=== PATIENT | female | born 1945 | race Caucasian/White ===

== ENCOUNTER 2018-10-11 16:19 | Emergency (ER) | payer MEDICARE ==
--- OUTSIDE RECORDS SUMMARY | 2018-10-11 16:46 | XMS REPORT ---
:1945 External Reference #:[id number] Author Organization [facility] Address [address] [place] [address] Phone [phone] Care Team Providers Name Role Phone Toby Isabel Care Team Information Window Clerk Unavailable Toby Isabel Primary Care Physician Unavailable Payers Type Date Identification Numbers Payment Provider Subscriber Commercial Effective: Policy Number: Medicare Blue Ppo Danielle Saldivar 2016 [id number] Group Number: [id number] [address] [phone] PayID: [id number] [place] [address] Problems Date Description Provider Status Onset: 02/25/2006 Allergic rhinitis Toby Isabel M.D. Active Onset: 02/25/2006 Hyperlipidemia Toby Isabel M.D. Active Onset: 02/25/2006 Hearing loss Toby Isabel M.D. Active Onset: 02/25/2006 Tinnitus Toby Isabel M.D. Active Onset: 06/05/2011 Diverticulitis of colon Toby Isabel M.D. Active Onset: 06/05/2011 Malaise and fatigue Toby Isabel M.D. Active Onset: 06/14/2011 Pulmonary embolism Toby Isabel M.D. 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 Active Onset: 06/24/2011 Anxiety state Toby Isabel M.D. Active Onset: 10/21/2011 Irritable bowel syndrome Toby Isabel M.D. Active Onset: 06/15/2012 Arthropathy Toby Isabel M.D. Active Onset: 04/05/2013 Neck pain Toby Isabel M.D. Active Onset: 04/05/2013 Backache Toby Isabel M.D. Active Onset: 10/14/2014 Gastroesophageal reflux disease Toby Isabel M.D. Active Onset: 10/14/2014 Liver function tests abnormal Toby Isabel M.D. Active Onset: 11/01/2014 Depressive disorder Toby Isabel M.D. Active Onset: 02/27/2015 Extrinsic asthma without status Toby Isabel M.D. Active asthmaticus Onset: 11/13/2015 Acute sinusitis Toby Isabel M.D. Active Onset: 11/13/2015 Acute gastritis Toby Isabel M.D. Active Onset: 11/13/2015 Dizziness and giddiness Toby Isabel M.D. Active Onset: 09/14/2016 Knee pain Toby Isabel M.D. Active Onset: 06/24/2011 Epigastric pain Toby Isabel M.D. Resolved Resolved: 07/02/2015 Onset: 11/04/2012 Acute upper respiratory infection Toby Isabel M.D. Resolved Resolved: 07/02/2015 Onset: 11/04/2012 Acute serous otitis media Toby Isabel M.D. Resolved Resolved: 07/02/2015 Onset: 12/21/2012 Sprain of interphalangeal joint of Toby Isabel M.D. Resolved finger Resolved: 07/02/2015 Onset: 12/21/2012 Sprain, metatarsophalangeal joint Toby Isabel M.D. Resolved Resolved: 07/02/2015 Onset: 02/27/2015 Allergic rhinitis due to pollen Toby Isabel M.D. Resolved Resolved: 07/02/2015 Onset: 04/04/2015 Adult health examination Toby Isabel M.D. Resolved Resolved: 07/02/2015 Onset: 02/25/2006 Allergic condition Toby Isabel M.D. Resolved Resolved: 07/02/2015 Family History Date Family Member(s) Problem(s) Comments Father due to Stroke () Father due to Alzheimer's Disease () Mother due to Brain Tumor () First Brother No Current Problems Social History Type Date Description Comments Marital Status Patient is Cigarette Use Nonsmoker ETOH Use Denies alcohol use Smoking Patient has never smoked Allergies, Adverse Reactions, Alerts Date Description Reaction Status Severity Comments 01/16/2010 Flagyl lightheaded, almost passed out. active 04/05/2013 Percocet pounding heart beat- diarrhea active Medications Medication Date Status Form Strength Qnty SIG Indications Ordering Provider Amoxicillin/Clav 10/04 Active Tablets 875-125mg 28tabs take one J01.90 Jayne Donnie ulanate /2017 by mouth Zhou, Potassium twice [employer] daily until gone Meclizine HCL 10/04 Active Tablets 12.5mg 30tabs take 1-2 H81.319 Jayne C. /2017 by mouth Zhou, 3 times [employer] daily as needed for vertigo Desloratadine 06/17 Active Tablets 5mg 30tabs 1 by Toby T. mouth Midura, every day M.D. as needed for allergies Saline Nasal 12/09 Active Solution 0.65% 2 sprays Unknown each nostril qd Montelukast 07/23 Active Tablets 10mg 30tabs take one J30.2 Toby T. Sodium /2015 tablet by Midura, mouth M.D. once daily at bedtime Fluticasone 02/22 Active Suspension 50mcg/Act 16units 1-2 J30.2 Toby T. Propionate sprays Midura, each M.D. nostril daily as needed for allergies Alprazolam 01/06 Active Tablets 0.25mg 5tabs /2-1 F41.9 Toby T. tabs by Midura, mouth M.D. twice a day as needed anxiety Warfarin Sodium 01/20 Active Tablets 4mg 30tabs take 1 Toby T. tablet by Midura, mouth M.D. every day or as directed. Psyllium Active Capsule 2 po qd Warfarin Sodium Active Tablets 5mg 30tabs 1 by Toby T. mouth Midura, every day M.D. or as directed Prednisone 04/15 Hx Tablets 10mg 14tabs 1 twice a Toby T. day x 4 Midura, - days then M.D. 04/22 1 day x 4 days then 1/2 daily x 4 days Cefdinir 03/17 Hx Capsules 300mg 20caps 1 by Toby Carrasco mouth Midura, - twice a M.D. Amoxicillin/Clav 03/08 Hx Tablets 875-125mg 20tabs 1 twice a J01.80 Toby castle day w/ Midura, Potassium - food. M.D. 03/17 Amoxicillin/Clav 07/23 Hx Tablets 875-125mg 20tabs 1 by J06.9 Meseret uljoao mouth Brown, [employer] Potassium - twice a 09/14 day x days Zyrtec Allergy 04/29 Hx Tablets 10mg 1 qd prn J30.2 Toby Carrasco Allergy Midura, - Symptoms M.D. 10/04 Doxycycline 01/22 Hx Capsules 100mg 2caps Take 2 S00.06xA Meseret Hyclate tablets Gabriel [employer] - one time 01/23 Amoxicillin/Clav 11/27 Hx Tablets 875-125mg 30tabs 1 twice a J01.80 Toby castle day w/ Midura, Potassium - food. M.D. 01/22 Azithromycin 11/13 Hx Tablets 250mg 6tabs 2 by J01.80 Toby Carrasco mouth Chalo, - today and M.D. 11/27 1 mouth x 4 days Cephalexin 10/30 Hx Tablets 250mg 21tabs 1 by S91.331A mouth Antonio, - three Afnp-C 11/06 times day x 7 days Omeprazole 10/30 Hx Capsules 20mg 30caps 1-[address] martin Alvarez, - every day Afnp-C 11/27 Fexofenadine HCL 10/30 Hx Tablets 180mg 14tabs 1 by H81.10 martin Alvarez, - every day Afnp-C 11/06 Naprosyn 07/02 Hx Tablets 500mg 60tabs 1 tab by 724.2 mouth Thanh, - twice a M.D. 10/30 day needed. take with food Cyclobenzaprine 07/02 Hx Tablets 5mg 60tabs 1 tab by 724.2 Debbie HCL mouth [place], - three M.D. 11/27 times a day as needed Physical Therapy 07/01 Hx treatment Toby T. and , - evaluatio M.D. 10/30 n back pain Singulair 02/27 Hx Tablets 10mg 30tabs 1 PO AT 493.00 Toby T. hs For [facility], - Allergies M.D. 07/02 And Asthma Proair HFA 02/27 Hx Aerosol 108(90Bas 8.5units 1-2 puffs 493.00 Toby T. e) every 4 , - mcg/Act hours as M.D. 07/02 needed Fluticasone 02/13 Hx Suspension 50mcg/Act 1Bottle 1-2 Toby T. Propionate sprays , - each M.D. 07/02 nostril daily prn for allergies Pramosone E 02/03 Hx Cream 1-2.5% 30gm apply to 782.1 affected [facility], - areas on Afnp-C 02/10 knee twice a day as needed to rash Doxycycline 01/24 Hx Tablets 100mg 2tabs take 2 916.4 Darell Hyclate pills [facility], - M.D. 02/27 Warfarin Sodium 11/25 Hx Tablets 3mg 30tabs 1 PO qd Toby T. , - M.D. 06/23 Amitriptyline 11/01 Hx Tablets 10mg 60tabs take 1/2 300.00 Toby T. HCL [place] [facility] [facility] - M.D. 04/04 Enoxaparin 10/21 Hx Solution 80mg/0.8M 6units Inject 415.19 Toby T. Sodium L 0.8 ml , - subcutane M.D. 11/01 ously every 12 hours (has incase of emergency ) Ondansetron 10/18 Hx Tablets 4mg 4tabs dissolve 787.02 Meseret Dispers one Brown, [employer] - tablet 10/23 under the /2014 tongue every eight hours for nausea/vo miting Escitalopram 10/14 Hx Tablets 5mg 40tabs 1-2 by 300.00 Toby T. Oxalate mouth Midura, - every day M.D. 10/18 for anxiety Alprazolam 09/13 Hx Tablets 0.25mg 40tabs 1/2-1 300.00 Toby T. tabs by Chalo, - mouth M.D. 07/02 twice a day as needed anxiety Cipro 05/26 Hx Tablets 500mg 20tabs 1 po bid Swathi L. x 10 Galina, - days. M.D. 05/28 diverticu litis Augmentin 10/08 Hx Tablets 500-125mg 20tabs 1 po bid 465.9 Toby T. Midura, - M.D. 05/28 Dicyclomine HCL 09/06 Hx Capsules 10mg 60caps take 1 Toby T. capsule Midura, - by mouth M.D. 01/24 times a day if needed for cramping Physical Therapy 04/05 Hx treatment 723.1 Toby T. and Midura, - evaluatio M.D. 10/08 n neck and upper back pain Fluticasone 12/21 Hx Suspension 50mcg/Act 1Bottle 1-2 Toby T. Propionate sprays Mid, - each M.D. 04/05 nostril daily prn for allergies Enoxaparin 07/17 Hx Solution 80mg/0.8M 6units Inject Harley F. Sodium L 0.8 ml Shallish, - subcutane M.D. 06/15 ously every 12 hours (has incase of emergency ) Cholestyramine 07/07 Hx Packet 4gm 60units use one Toby T. (1) Chalo, - packet M.D. 10/21 twice daily in a glass of water Dicyclomine HCL 06/29 Hx Capsules 10mg 60caps take 1 Toby T. capsule Midura, - by mouth M.D. 11/04 times a day if needed for cramping Prevacid 24HR 06/24 Hx Capsules 15mg Samples 1 po qd Toby T DR Isabel, - M.DJanee 07/17 Sulfamethoxazole 06/22 Hx Tablets 800-160mg 20tabs 1 po bid Toby T. /Trimethoprim Chalo - M.DJanee 07/03 Alprazolam 06/14 Hx Tablets 0.25mg 30tabs /2-1 Toby T. tabs po Radhaura, - bid prn M.D. 11/04 Warfarin Sodium 06/11 Hx Tablets 2.5mg 60tabs Take 1 To Toby T 2 Tablets Chalo, - Daily Or M.D. 06/15 Directed Clindamycin HCL 06/05 Hx Capsules 300mg 10caps 1 po Bid 562.11 Toby T. Chalo, - M.DJanee 06/11 Levaquin 06/01 Hx Tablets 500mg 10tabs 1 po qd Toby T. Chalo - M.DJanee 06/11 Cipro 05/29 Hx Tablets 500mg 10tabs 1 po bid 789.09 Sharona Molina for 5 LaFace, - days M.D. 06/01 Fluticasone 04/08 Hx Suspension 50mcg/Act 1Bottle 1-2 Yaw A. Propionate sprays Markus, - each M.D. 10/21 nostril daily prn for allergies Augmentin 03/31 Hx Tablets 875-125mg 28tabs 1 po bid 461.0 with food Emerita, - x 14d [employer] PROF[employer] 05/24 Physical Therapy 03/11 Hx treatment Toby T and Chalo, - evaluatio M.D. 03/31 n low back pain Physical Therapy 01/13 Hx 1units treatment and Carie Velazquez, - evaluatio M.D. 03/11 n Right knee osteoarth ritis Note 12/26 Hx 1units hinged 719.46 brakamaljit Velazquez, - right M.D. 03/31 knee - pain/inst ability Valacyclovir HCL 08/03 Hx Tablets 1gm 20tabs 1 po bid Toby T x 10 day. Midtiffany, - M.D. 08/06 Zovirax 08/03 Hx Ointment 5% 1tube apply 5 Toby T. times Midura, - daily M.D. 08/06 Valacyclovir HCL 08/03 Hx Tablets 500mg 60tabs 1 po bid Toby T. x 5 for Midura, - recurrenc M.D. 11/04 e. Keflex 07/31 Hx Capsules 500mg 30caps 1 po tid 599.0 Swathi L. with Galina, - yogurt/ke M.D. 12/26 fir. Flagyl 01/15 Hx Tablets 500mg 21tabs 1 po tid Toby T. Midura, - M.D. 01/16 Physical Therapy 12/16 Hx treatment Toby T. and Midura, - evaluatio M.D. 01/05 n And Upper back pain Augmentin 08/12 Hx Tablets 875mg 20tabs 1 po bid Toby T. with food Midura, - M.D. 01/27 Klonopin 11/15 Hx Tablets 0.5mg 60tabs 1-2 hs Toby T. prn For Midura, - Back Pain M.D. 07/31 And Augmentin 08/21 Hx Tablets 875mg 14tabs 1 po bid 461.9 Yaw A. /2006 Markus, - M.D. 08/28 Xanax 04/07 Hx Tablets 0.25mg 20tabs 1 Tabs PO Toby T. bid prn Midura, - Anxiety M.D. 09/12 Physical Therapy 05/19 Hx treatment Toby T. and Midura, - evaluatio M.D. 02/01 n hammertoe s both feet. Physical Therapy 04/28 Hx treatment Toby T. and Midura, - evaluatio M.D. 08/12 n and upper back pain And RT Knee Pain Hearing Test 02/28 Hx PT needs Toby T. to have A Midura, - hearing M.D. 02/01 test due to hearing loss Loratadine 10/14 Hx Tablets 10mg 30tabs 1 po qd Toby T. prn Chalo, - M.D. 04/07 Physical Therapy 12/25 Hx treatment Toby T. and Chalo, - evaluatio M.D. 02/14 n neck, upper back and RT shoulder pain Amoxicillin 12/15 Hx Tablets 500mg 30tabs 1 tid X Rupal /2004 10 Days Antonio, - Afnp-C 12/25 Amoxil 06/02 Hx 500mg 30units 1 PO tid Manasa Hilsdorf, - Afnp-C 06/12 Nasonex 04/09 Hx Suspension 50mcg/Act 1units 2 sprays Toby T. each Chalo, - nostril M.D. 07/31 qd Beconase Nasal 01/31 Hx 1units 2 [place] Toby T. Inhaler bid prn Chalo, - M.D. 04/09 Physical Therapy 01/31 Hx Treatment Toby T. And Chalo, - Evaluatio M.D. 07/29 n Neck /2003 And RT Arm Pain And Numbness Beconase 02/23 Hx 42mcg 1units 2 Sprays Each S. Beau, - Nostril M.D. 01/31 Once Daily Physical Therapy 01/16 Hx Treatment Toni M. And Aletha, - Evaluatio M.D. 01/31 n Of Knee, Neck Shoulder And Lumbar Spine Naproxen 09/29 Hx 375mg Tab 60units 1 po tid Toby T. prn Chalo, - M.D. 02/14 Physical Therapy 09/01 Hx Treatment Toni M. And Blumkin, - Evaluatio M.D. 11/11 n Back Pain Nasonex 06/08 Hx 50mcg 1units 2 Sprays Toni M. Each Blumkin, - Nostril M.D. 02/23 qd Naproxen 06/08 Hx 375mg Tab 50units 1 PO tid Toni M. For One Blumkin, - Week Then M.D. 07/08 tid prn /2000 Amoxicillin 10/12 Hx Tablets 500mg 30tabs 1 Tablet Rupal 3 Times Antonio, - Daily Afnp-C 10/22 Bromfenex SA 07/11 Hx 60units one bid Toby T. prn MidMissael allen M.DJanee 09/29 Ceftin 04/06 Hx 250mg 20units PO bid Toni Molina X10D Missael Pompa.Jose Armando 10/12 Medrol Dosepack 03/28 Hx 4mg 1units as Toni Janee Directed Missael Pompa.DJanee 10/12 Zithromax 03/22 Hx 250mg 6units 2 Tabs Toni Molina Day 1 Missael Pompa.Jose Armando 03/27 1 Tab qd Days 2 Thru 5 Clarinex 03/22 Hx 10mg 30units 1 qd prn Toni Molina Missael Pompa.Jose Armando 10/12 Vancenase 06/05 Hx pkthaler 1units One Toni Janee sprays Aletha, - each M.D. 06/08 nostril /2000 bid Naproxen 03/31 Hx 375mg Tab 50units 1 PO tid Toni . prn Missael Pompa M.D. 10/12 Naproxen 12/23 Hx 375mg Tab 50units 1 tid For One Week Blumkin, - Then tid M.D. 01/12 prn /1998 Vancenase 06/17 Hx Pocket 1units 2 Sprays Toni Janee Each Aletha, - Nostril M.D. 01/21 Anaprox DS 01/06 Hx Tabs 550mg 30tabs 1 PO bid Harley F. prn Pain Shallish, - With Food M.D. 02/05 Bromfenex SA 12/05 Hx 60units as Dir Manasa Jose, - Afnp-C 03/22 Biaxin 09/05 Hx 500mg 20units 1 PO bid Toni Molina Missael Pompa.DJanee 01/21 Mucinex Maximum Hx Tablets ER 1200mg as Unknown Strength /0000 12HR Directed - 05/24 Sudafed 12 Hour 00 Hx Tablets ER 120mg 1 po bid Unknown /0000 12HR prn - 05/24 Ibuprofen 00/ Hx Capsules 200mg prn Unknown /0000 - 05/29 Tylenol Hx Tablets 325mg 120tabs prn Unknown /0000 - 10/21 Lovenox Hx Solution 80mg/0.8M 16ml 80 mg sq Unknown / L bid - 06/24 Flonase Hx Suspension 50mcg/Act 2 each Unknown /0000 nostril - qd 10/21 Swetha D 24H 00 Hx 1 po qd Unknown / - 10/21 Flonase 00 Hx Suspension 50mcg/Act 3units 2 each Rupal /0000 nostril Antonio, - qd Afnp-C 11/04 Aspir-Low Hx 81mg 1 po qd Unknown /0000 - 09/23 Cefdinir Hx Capsules 300mg 6caps 1 po bid Toby T. /0000 Radhaura, - M.D. 12/21 Amoxicillin Hx Capsules 500mg 1 po tid Unknown /0000 - 05/28 Amoxicillin/Clav 00 Hx Tablets 875-125mg 20tabs 1 po bid Unknown ulanate /0000 Potassium - 09/23 Zofran Odt Hx Tablets 4mg 30tabs 1 by Unknown /0000 Dispers mouth - every 4-6 / hours needed nausea Omeprazole Hx Capsules 20.6(20Ba One tab Unknown Magnesium /0000 se) mg by mouth - once a Prilosec OTC Hx Tablets DR 20mg 1 by Unknown /0000 mouth - every day 11/13 Immunizations CPT Code Status Date Vaccine Lot # [id number] Given 07/27/2018 High-Dose, Influenza Virus Vacccine-fluzone 65 and [id number] older Given 07/22/2017 High-Dose, Influenza Virus Vacccine-fluzone 65 and [id number] older Given 08/06/2016 High-Dose, Influenza Virus Vacccine-fluzone 65 and [id number] older 48385 Given 08/22/2015 High-Dose, Influenza Virus Vacccine-fluzone 65 and [id number] older 85817 Given 08/31/2014 Tetanus And Diptheria Adult Preservative Free >7Yrs 58240 Given 08/17/2014 High-Dose, Influenza Virus Vacccine-fluzone 65 and older 52398 Given 08/17/2014 High-Dose, Influenza Virus Vacccine-fluzone 65 and [id number] older 68514 Given 08/17/2013 High-Dose, Influenza Virus Vacccine-fluzone 65 and [id number] older 56420 Given 12/21/2012 Zostivax [id number] 08039 Given 09/21/2012 Tdap Tetanus, W Pertussis [id number] 99239 Given 09/21/2012 High-Dose, Influenza Virus Vacccine-fluzone 65 and [id number] older Q2038 Given 07/17/2011 Split Influenza Medicare: Fluzone [id number] 01023 Given 04/21/2011 Pneumococcal Immunization 92678 Given 12/16/2010 DO Not Use Split Influenza Virus Vaccine [id number] 17514 Given 11/18/2009 H1N1 Virus Vaccine [id number] 13276 Given 11/18/2009 H1N1 Immunization Intramuscular/Intranasal W Counseling 88253 Given 08/12/2008 DO Not Use Split Influenza Virus Vaccine [id number] 77518 Given 10/06/2007 DO Not Use Split Influenza Virus Vaccine 09124 Given 09/29/2005 DO Not Use Split Influenza Virus Vaccine 53892 Given 09/07/1999 DO Not Use Split Influenza Virus Vaccine 37025 Given 08/14/1998 Influenza Immunization 01122 Given 08/13/1997 Influenza Immunization Vital Signs Date Vital Result Comment 10/04/2018 BP Systolic 120 mmHg BP Diastolic 68 mmHg Heart Rate 72 /min Body Temperature 98.3 F Respiratory Rate 18 /min Height 69.25 inches 5'9.25" measured 04/29/16 Weight 204.00 lb BMI (Body Mass Index) 29.9 kg/m2 06/17/2017 BP Systolic 124 mmHg BP Diastolic 66 mmHg Heart Rate 72 /min Body Temperature 97.9 F Respiratory Rate 16 /min Height 69.25 inches 5'9.25" measured 04/29/16 Weight 201.38 lb BMI (Body Mass Index) 29.5 kg/m2 03/08/2017 BP Systolic 142 mmHg BP Diastolic 72 mmHg Heart Rate 84 /min Body Temperature 97.5 F Respiratory Rate 16 /min Height 69.25 inches 5'9.25" measured 04/29/16 Weight 200.38 lb BMI (Body Mass Index) 29.4 kg/m2 09/14/2016 BP Systolic 122 mmHg BP Diastolic 68 mmHg Heart Rate 78 /min Body Temperature 97.5 F Respiratory Rate 16 /min Height 69.25 inches 5'9.25" measured 04/29/16 Weight 202.00 lb BMI (Body Mass Index) 29.6 kg/m2 07/23/2016 BP Systolic 120 mmHg BP Diastolic 72 mmHg Heart Rate 72 /min Body Temperature 98.1 F Respiratory Rate 18 /min Height 69.25 inches 5'9.25" measured 04/29/16 Weight 200.00 lb BMI (Body Mass Index) 29.3 kg/m2 05/11/2016 BP Systolic 138 mmHg BP Diastolic 90 mmHg Heart Rate 72 /min Body Temperature 98.1 F Respiratory Rate 18 /min Height 69.25 inches 5'9.25" measured 04/29/16 Weight 197.00 lb BMI (Body Mass Index) 28.9 kg/m2 04/29/2016 BP Systolic 122 mmHg BP Diastolic 68 mmHg Heart Rate 72 /min Body Temperature 98.1 F Respiratory Rate 16 /min Height 69.25 inches 5'9.25" measured 04/29/16 Weight 195.50 lb BMI (Body Mass Index) 28.7 kg/m2 02/12/2016 BP Systolic 110 mmHg BP Diastolic 74 mmHg Heart Rate 68 /min Body Temperature 97.7 F Respiratory Rate 18 /min Height 70 inches 5'10" Weight 198.00 lb BMI (Body Mass Index) 28.4 kg/m2 01/23/2016 BP Systolic 110 mmHg BP Diastolic 80 mmHg Heart Rate 68 /min Body Temperature 98.0 F Respiratory Rate 18 /min Weight 198.00 lb 11/27/2015 BP Systolic 116 mmHg BP Diastolic 68 mmHg Heart Rate 72 /min Body Temperature 97.9 F Respiratory Rate 16 /min Height 70 inches 5'10" measured 04/04/15 Weight 196.25 lb BMI (Body Mass Index) 28.2 kg/m2 11/13/2015 BP Systolic 100 mmHg BP Diastolic 60 mmHg Heart Rate 84 /min Body Temperature 98.2 F Respiratory Rate 16 /min Height 70 inches 5'10" measured 04/04/15 Weight 194.00 lb BMI (Body Mass Index) 27.8 kg/m2 10/30/2015 BP Systolic 120 mmHg BP Diastolic 80 mmHg Heart Rate 80 /min Body Temperature 98.2 F Respiratory Rate 18 /min Height 70 inches 5'10" measured 04/04/15 Weight 194.00 lb BMI (Body Mass Index) 27.8 kg/m2 07/02/2015 BP Systolic 122 mmHg BP Diastolic 70 mmHg Heart Rate 78 /min Body Temperature 97.9 F Respiratory Rate 16 /min Height 70 inches 5'10" measured 04/04/15 Weight 191.00 lb BMI (Body Mass Index) 27.4 kg/m2 04/28/2015 BP Systolic 134 mmHg BP Diastolic 68 mmHg Heart Rate 80 /min Body Temperature 97.7 F Respiratory Rate 16 /min Height 70 inches 5'10" measured 04/04/15 Weight 185.00 lb BMI (Body Mass Index) 26.5 kg/m2 04/04/2015 BP Systolic 130 mmHg BP Diastolic 60 mmHg Heart Rate 84 /min Body Temperature 100.2 F Respiratory Rate 16 /min Height 70 inches 5'10" measured 04/04/15 Weight 186.25 lb BMI (Body Mass Index) 26.7 kg/m2 Right Visual Acuity Distance 20/25 corrected Left Visual Acuity Distance 20/30 corrected 02/27/2015 BP Systolic 146 mmHg BP Diastolic 74 mmHg Heart Rate 84 /min Body Temperature 98.2 F Respiratory Rate 16 /min O2 % BldC Oximetry 97 % Weight 185.25 lb 02/03/2015 BP Systolic 140 mmHg BP Diastolic 90 mmHg Heart Rate 80 /min Body Temperature 98.5 F Respiratory Rate 18 /min Height 70 inches 5'10" Weight 185.00 lb BMI (Body Mass Index) 26.5 kg/m2 01/24/2015 BP Systolic 130 mmHg BP Diastolic 80 mmHg Heart Rate 84 /min Body Temperature 98.1 F Respiratory Rate 16 /min Height 70 inches 5'10" Weight 182.00 lb BMI (Body Mass Index) 26.1 kg/m2 01/06/2015 BP Systolic 108 mmHg BP Diastolic 64 mmHg Heart Rate 80 /min Body Temperature 98.1 F Respiratory Rate 16 /min Height 70 inches 5'10" Weight 179.00 lb BMI (Body Mass Index) 25.7 kg/m2 12/16/2014 BP Systolic 108 mmHg BP Diastolic 60 mmHg Heart Rate 80 /min Body Temperature 98.1 F Respiratory Rate 16 /min Height 70 inches 5'10" Weight 174.00 lb BMI (Body Mass Index) 25.0 kg/m2 11/25/2014 BP Systolic 120 mmHg BP Diastolic 60 mmHg Heart Rate 88 /min Body Temperature 99.0 F Respiratory Rate 16 /min Height 70 inches 5'10" Weight 175.00 lb BMI (Body Mass Index) 25.1 kg/m2 11/11/2014 BP Systolic 118 mmHg BP Diastolic 70 mmHg Heart Rate 88 /min Body Temperature 98.0 F Respiratory Rate 16 /min Height 70 inches 5'10" Weight 178.25 lb BMI (Body Mass Index) 25.6 kg/m2 11/01/2014 BP Systolic 124 mmHg BP Diastolic 72 mmHg Heart Rate 78 /min Body Temperature 98.5 F Respiratory Rate 16 /min Height 70 inches 5'10" Weight 179.00 lb BMI (Body Mass Index) 25.7 kg/m2 10/25/2014 BP Systolic 132 mmHg BP Diastolic 70 mmHg Heart Rate 104 /min Body Temperature 98.2 F Respiratory Rate 16 /min Height 70 inches 5'10" Weight 180.00 lb BMI (Body Mass Index) 25.8 kg/m2 10/18/2014 BP Systolic 106 mmHg BP Diastolic 74 mmHg Heart Rate 60 /min Body Temperature 98.0 F Respiratory Rate 16 /min Height 70 inches 5'10" Weight 181.50 lb BMI (Body Mass Index) 26.0 kg/m2 10/14/2014 BP Systolic 124 mmHg BP Diastolic 82 mmHg Heart Rate 80 /min Body Temperature 98.3 F Respiratory Rate 18 /min Height 70 inches 5'10" Weight 180.50 lb BMI (Body Mass Index) 25.9 kg/m2 09/27/2014 BP Systolic 130 mmHg BP Diastolic 88 mmHg Heart Rate 72 /min Body Temperature 97.7 F Respiratory Rate 22 /min Height 70 inches 5'10" 09/23/2014 BP Systolic 128 mmHg BP Diastolic 82 mmHg Heart Rate 76 /min Body Temperature 98.5 F Respiratory Rate 16 /min Height 70 inches 5'10" Weight 180.00 lb BMI (Body Mass Index) 25.8 kg/m2 05/28/2014 BP Systolic 120 mmHg BP Diastolic 66 mmHg Heart Rate 76 /min Body Temperature 98.6 F Respiratory Rate 16 /min Height 70 inches 5'10" Weight 192.00 lb BMI (Body Mass Index) 27.5 kg/m2 10/08/2013 BP Systolic 128 mmHg BP Diastolic 76 mmHg Heart Rate 78 /min Body Temperature 98.2 F Respiratory Rate 16 /min Height 70 inches 5'10" Weight 188.38 lb BMI (Body Mass Index) 27.0 kg/m2 04/05/2013 BP Systolic 138 mmHg BP Diastolic 82 mmHg BP Systolic Recheck 108 mmHg BP Diastolic Recheck 74 mmHg Heart Rate 78 /min Body Temperature 97.2 F Respiratory Rate 15 /min Height 70 inches 5'10" Weight 192.00 lb BMI (Body Mass Index) 27.5 kg/m2 12/21/2012 BP Systolic 110 mmHg BP Diastolic 80 mmHg Heart Rate 78 /min Body Temperature 97.6 F Respiratory Rate 16 /min Height 70 inches 5'10" Weight 195.00 lb BMI (Body Mass Index) 28.0 kg/m2 11/04/2012 BP Systolic 108 mmHg BP Diastolic 70 mmHg Heart Rate 78 /min Body Temperature 98.0 F Height 70 inches 5'10" Weight 190.00 lb BMI (Body Mass Index) 27.3 kg/m2 09/21/2012 BP Systolic 110 mmHg BP Diastolic 72 mmHg Heart Rate 76 /min Body Temperature 97.7 F Height 70 inches 5'10" Weight 191.00 lb BMI (Body Mass Index) 27.4 kg/m2 06/15/2012 BP Systolic 120 mmHg BP Diastolic 80 mmHg Heart Rate 72 /min Height 70 inches 5'10" Weight 195.00 lb BMI (Body Mass Index) 28.0 kg/m2 10/21/2011 BP Systolic 104 mmHg BP Diastolic 64 mmHg Heart Rate 80 /min Body Temperature 97.6 F Respiratory Rate 20 /min Height 70 inches 5'10" Weight 186.00 lb BMI (Body Mass Index) 26.7 kg/m2 07/17/2011 BP Systolic 118 mmHg BP Diastolic 70 mmHg Heart Rate 76 /min Body Temperature 98.1 F O2 % BldC Oximetry 98 % Height 70 inches 5'10" Weight 180.00 lb BMI (Body Mass Index) 25.8 kg/m2 07/03/2011 BP Systolic Recheck 120 mmHg BP Diastolic Recheck 76 mmHg Heart Rate 76 /min Body Temperature 97.1 F Respiratory Rate 12 /min 06/24/2011 BP Systolic 102 mmHg BP Diastolic 60 mmHg Heart Rate 72 /min Body Temperature 97.2 F Respiratory Rate 15 /min Height 70 inches 5'10" Weight 180.00 lb BMI (Body Mass Index) 25.8 kg/m2 06/14/2011 BP Systolic 112 mmHg BP Diastolic 72 mmHg Heart Rate 88 /min Respiratory Rate 15 /min Height 70 inches 5'10" Weight 179.00 lb BMI (Body Mass Index) 25.7 kg/m2 06/05/2011 BP Systolic 100 mmHg BP Diastolic 60 mmHg Heart Rate 92 /min Body Temperature 97.9 F Height 70 inches 5'10" 06/01/2011 BP Systolic 118 mmHg BP Diastolic 70 mmHg BP Diastolic Recheck 0 mmHg Heart Rate 100 /min Body Temperature 98.3 F Respiratory Rate 14 /min Height 70 inches 5'10" Weight 183.00 lb BMI (Body Mass Index) 26.3 kg/m2 05/29/2011 BP Systolic 100 mmHg BP Diastolic 56 mmHg Heart Rate 68 /min Body Temperature 98.2 F Respiratory Rate 22 /min Height 70 inches 5'10" 05/24/2011 BP Systolic 104 mmHg BP Diastolic 68 mmHg Heart Rate 90 /min Height 70 inches 5'10" Weight 188.00 lb BMI (Body Mass Index) 27.0 kg/m2 04/01/2011 BP Systolic 116 mmHg BP Diastolic 60 mmHg Heart Rate 78 /min Body Temperature 99.1 F Height 70 inches 5'10" Weight 196.00 lb BMI (Body Mass Index) 28.1 kg/m2 03/31/2011 BP Systolic 102 mmHg BP Diastolic 54 mmHg Heart Rate 90 /min Body Temperature 99.4 F Height 70 inches 5'10" Weight 196.00 lb BMI (Body Mass Index) 28.1 kg/m2 12/26/2010 BP Systolic 110 mmHg BP Diastolic 76 mmHg Heart Rate 76 /min Height 70 inches 5'10" Weight 195.00 lb BMI (Body Mass Index) 28.0 kg/m2 08/06/2010 BP Systolic 120 mmHg BP Diastolic 70 mmHg Heart Rate 84 /min Body Temperature 99.2 F Height 70 inches 5'10" Weight 188.00 lb BMI (Body Mass Index) 27.0 kg/m2 07/31/2010 BP Systolic 122 mmHg BP Diastolic 68 mmHg Heart Rate 84 /min Body Temperature 100.4 F Respiratory Rate 16 /min Height 70 inches 5'10" Weight 191.00 lb BMI (Body Mass Index) 27.4 kg/m2 01/05/2010 BP Systolic 130 mmHg BP Diastolic 80 mmHg Heart Rate 72 /min Body Temperature 97.5 F Respiratory Rate 12 /min Weight 190.00 lb 01/27/2009 BP Systolic 114 mmHg BP Diastolic 60 mmHg Heart Rate 76 /min Body Temperature 98.9 F Height 70 inches 5'10" Weight 204.00 lb BMI (Body Mass Index) 29.3 kg/m2 08/12/2008 BP Systolic 128 mmHg BP Diastolic 74 mmHg Heart Rate 68 /min Body Temperature 97.8 F Height 70 inches 5'10" Weight 204.00 lb BMI (Body Mass Index) 29.3 kg/m2 12/28/2007 BP Systolic 130 mmHg BP Diastolic 72 mmHg Heart Rate 84 /min Body Temperature 98.1 F Height 70 inches 5'10" Weight 211.00 lb BMI (Body Mass Index) 30.3 kg/m2 11/15/2007 BP Systolic 116 mmHg BP Diastolic 70 mmHg Heart Rate 84 /min Body Temperature 97.8 F Height 70 inches 5'10" Weight 206.00 lb BMI (Body Mass Index) 29.6 kg/m2 10/06/2007 BP Systolic 118 mmHg BP Diastolic 70 mmHg Heart Rate 90 /min Body Temperature 98.2 F Height 70 inches 5'10" Weight 206.00 lb BMI (Body Mass Index) 29.6 kg/m2 09/12/2007 BP Systolic 122 mmHg BP Diastolic 76 mmHg Heart Rate 74 /min Body Temperature 97.6 F Height 70 inches 5'10" Weight 204.00 lb BMI (Body Mass Index) 29.3 kg/m2 08/21/2007 BP Systolic 112 mmHg BP Diastolic 64 mmHg Heart Rate 76 /min Body Temperature 98.7 F O2 % BldC Oximetry 98 % Height 70 inches 5'10" 04/27/2007 BP Systolic 110 mmHg BP Diastolic 70 mmHg Heart Rate 68 /min Body Temperature 98.9 F Height 70 inches 5'10" Weight 209.00 lb BMI (Body Mass Index) 30.0 kg/m2 04/07/2007 BP Systolic 108 mmHg BP Diastolic 64 mmHg Heart Rate 72 /min Height 70 inches 5'10" Weight 208.00 lb BMI (Body Mass Index) 29.8 kg/m2 02/09/2007 BP Systolic 106 mmHg BP Diastolic 64 mmHg Heart Rate 88 /min Height 70 inches 5'10" Weight 213.00 lb BMI (Body Mass Index) 30.6 kg/m2 02/01/2007 BP Systolic 118 mmHg BP Diastolic 76 mmHg Heart Rate 72 /min Height 70 inches 5'10" 03/11/2006 BP Systolic 120 mmHg BP Diastolic 80 mmHg Heart Rate 88 /min Respiratory Rate 18 /min Height 70 inches 5'10" Weight 212.00 lb BMI (Body Mass Index) 30.4 kg/m2 02/25/2006 BP Systolic 122 mmHg BP Diastolic 76 mmHg Heart Rate 76 /min Height 70 inches 5'10" Weight 212.00 lb BMI (Body Mass Index) 30.4 kg/m2 02/14/2006 BP Systolic 108 mmHg BP Diastolic 62 mmHg Heart Rate 72 /min Height 70 inches 5'10" Weight 213.00 lb BMI (Body Mass Index) 30.6 kg/m2 09/29/2005 BP Systolic 118 mmHg BP Diastolic 70 mmHg Heart Rate 76 /min Height 70 inches 5'10" Weight 205.00 lb BMI (Body Mass Index) 29.4 kg/m2 09/20/2005 BP Systolic 126 mmHg BP Diastolic 82 mmHg Heart Rate 78 /min Height 70 inches 5'10" Weight 200.00 lb BMI (Body Mass Index) 28.7 kg/m2 12/25/2004 BP Systolic 124 mmHg BP Diastolic 74 mmHg Heart Rate 72 /min Height 70 inches 5'10" Weight 204.00 lb BMI (Body Mass Index) 29.3 kg/m2 12/15/2004 BP Systolic 122 mmHg BP Diastolic 72 mmHg Heart Rate 80 /min Body Temperature 99.5 F Height 70 inches 5'10" Weight 201.00 lb BMI (Body Mass Index) 28.8 kg/m2 07/29/2004 BP Systolic 102 mmHg LG Cuff BP Diastolic 72 mmHg LG Cuff Body Temperature 97.6 F Height 70 inches 5'10" Weight 195.00 lb BMI (Body Mass Index) 28.0 kg/m2 01/31/2003 BP Systolic 122 mmHg BP Diastolic 66 mmHg Heart Rate 76 /min Body Temperature 98.0 F Height 70 inches 5'10" Weight 207.50 lb BMI (Body Mass Index) 29.8 kg/m2 06/13/2002 BP Systolic 122 mmHg BP Diastolic 76 mmHg Body Temperature 96.7 F Height 70 inches 5'10" Weight 205.00 lb BMI (Body Mass Index) 29.4 kg/m2 10/23/2001 BP Systolic 1110 mmHg BP Diastolic 70 mmHg Heart Rate 74 /min Body Temperature 98.0 F Height 70 inches 5'10" Weight 210.00 lb BMI (Body Mass Index) 30.1 kg/m2 09/29/2001 BP Systolic 122 mmHg BP Diastolic 70 mmHg Heart Rate 76 /min Height 70 inches 5'10" Weight 207.00 lb BMI (Body Mass Index) 29.7 kg/m2 06/29/2001 BP Systolic 122 mmHg BP Diastolic 80 mmHg Heart Rate 80 /min Height 70 inches 5'10" Weight 203.00 lb BMI (Body Mass Index) 29.1 kg/m2 06/08/2001 BP Systolic 146 mmHg BP Diastolic 92 mmHg Height 70 inches 5'10" Weight 202.00 lb BMI (Body Mass Index) 29.0 kg/m2 10/12/2000 BP Systolic 136 mmHg BP Diastolic 80 mmHg Body Temperature 97.9 F Height 70 inches 5'10" Weight 206.50 lb BMI (Body Mass Index) 29.7 kg/m2 03/22/2000 BP Systolic 140 mmHg LA SM Cuff BP Diastolic 96 mmHg LA SM Cuff Body Temperature 97.3 F Weight 200.00 lb 08/27/1999 Weight 203.00 lb 03/31/1999 BP Systolic 120 mmHg LA LG Cuff BP Diastolic 86 mmHg LA LG Cuff Weight 202.00 lb 01/21/1999 BP Systolic 130 mmHg BP Diastolic 90 mmHg Weight 203.00 lb 12/23/1998 BP Systolic 120 mmHg BP Diastolic 82 mmHg Weight 202.00 lb 03/12/1998 BP Systolic 120 mmHg LA LG Cuff BP Diastolic 72 mmHg LA LG Cuff Body Temperature 97.2 F Weight 203.00 lb 01/24/1998 BP Systolic 108 mmHg L Arm LG Cuff BP Diastolic 64 mmHg L Arm LG Cuff 01/06/1998 BP Systolic 120 mmHg BP Diastolic 80 mmHg Weight 200.00 lb 09/05/1997 Body Temperature 98.2 F Weight 198.00 lb Results Test Date Test Result H/L Range Note Laboratory test 09/07/2018 Inr (Fma) 2.6 2-3 finding Laboratory test 08/24/2018 Inr (Fma) 3.2 High 2.0-3.0 finding Laboratory test 07/27/2018 Inr (Fma) 2.6 2-3 finding Laboratory test 07/06/2018 Inr (Fma) 2.4 2.0-3.0 finding Laboratory test 06/29/2018 Inr (Fma) 3.3 High 2.0-3.0 finding Laboratory test 06/08/2018 Inr (Fma) 3.4 High 0.9-1.1 finding Laboratory test 05/25/2018 Inr (Fma) 3.5 High 2.0-3.0 finding Laboratory test 04/20/2018 Inr (Fma) 2.3 2-3 finding Laboratory test 03/16/2018 Inr (Fma) 2.1 2-3 finding Laboratory test 03/01/2018 Inr (Fma) 3.2 High 0.9-1.1 finding Laboratory test 02/03/2018 Inr (Fma) 2.5 2.0-3.0 finding Laboratory test 01/06/2018 Inr (Fma) 2.2 2.0-3.0 finding Laboratory test 12/09/2017 Inr (Fma) 2.0 2.0-3.0 finding Laboratory test 12/02/2017 Inr (Fma) 2.7 2.0-3.0 finding Laboratory test 10/28/2017 Inr (Fma) 2.5 2-3 finding Laboratory test 09/30/2017 Inr (Fma) 3.0 2.0-3.0 finding Laboratory test 08/19/2017 Inr (Fma) 2.5 2-3 finding Laboratory test 07/22/2017 Inr (Fma) 2.5 High 0.9-1.1 finding Laboratory test 06/17/2017 Inr (Fma) 2.4 2.0-3.0 finding Laboratory test 06/03/2017 Inr (Fma) 2.5 2.0-3.0 finding Laboratory test 05/20/2017 Inr (Fma) 2.6 2.0-3.0 finding Laboratory test 04/22/2017 Inr (Fma) 2.5 2.0-3.0 finding Laboratory test 03/25/2017 Inr (Fma) 2.3 2.0-3.0 finding Laboratory test 03/11/2017 Inr (Fma) 2.3 2-3 finding Laboratory test 02/18/2017 Inr (Fma) 2.4 2.0-3.0 finding Laboratory test 01/28/2017 Inr (Fma) 2.4 2.0-3.0 finding Laboratory test 01/21/2017 Inr (Fma) 1.5 Low 2.0-3.0 finding Laboratory test 01/18/2017 Surgical Interface SEE RESULT 1 finding Order BELOW Laboratory test 01/13/2017 Inr (Fma) 3.0 2.0-3.0 finding Laboratory test 12/17/2016 Inr (Fma) 2.8 2.0-3.0 finding Laboratory test 12/10/2016 Inr (Fma) 2.7 2-3 finding Laboratory test 11/29/2016 Inr (Fma) 3.1 High 2.0-3.0 finding Laboratory test 11/15/2016 Inr (Fma) 3.1 High 2.0-3.0 finding Laboratory test 11/10/2016 Inr (Fma) 2.7 2-3 finding Laboratory test 11/05/2016 Inr (Fma) 2.6 2.0-3.0 finding Laboratory test 10/04/2016 Inr (Fma) 2.6 2-3 finding Laboratory test 09/14/2016 Inr (Fma) 2.6 2.0-3.0 finding Laboratory test 09/01/2016 Inr (Fma) 2.5 2.0-3.0 finding Laboratory test 08/25/2016 Inr (Fma) 3.3 High 2-3 finding Laboratory test 07/23/2016 Inr (Fma) 2.5 2.0-3.0 finding Laboratory test 07/02/2016 Inr (Fma) 2.3 2-3 finding Laboratory test 06/07/2016 Inr/Protime 2.74 High 0.89-1.11 finding CBC Auto Diff 06/07/2016 White Blood Count 6.4 10^3/uL 3.5-10.8 Red Blood Count 4.71 10^6/uL 4.0-5.4 Hemoglobin 13.5 g/dL 12.0-16.0 Hematocrit 41 % 35-47 Mean Corpuscular Volume 86 fL 80-97 Mean Corpuscular Hemoglobin 29 pg 27-31 Mean Corpuscular HGB Conc 33 g/dL 31-36 Red Cell Distribution Width 13 % 10.5-15 Platelet Count 207 10^3/uL 150-450 Mean Platelet Volume 8 um3 7.4-10.4 Abs Neutrophils 3.9 10^3/uL 1.5-7.7 Abs Lymphocytes 1.7 10^3/uL 1.0-4.8 Abs Monocytes 0.5 10^3/uL 0-0.8 Abs Eosinophils 0.1 10^3/uL 0-0.6 Abs Basophils 0 10^3/uL 0-0.2 Abs Nucleated RBC 0 10^3/uL Granulocyte % 61.7 % 38-83 Lymphocyte % 27.3 % 25-47 Monocyte % 8.4 % 1-9 Eosinophil % 2.2 % 0-6 Basophil % 0.4 % 0-2 Nucleated Red Blood Cells % 0 Laboratory test finding 06/07/2016 Lactic Acid 0.8 mmol/L 0.5-2.0 2 Comp Metabolic Panel 06/07/2016 Sodium 137 mmol/L 133-145 Potassium 4.2 mmol/L 3.5-5.0 Chloride 106 mmol/L 101-111 Co2 Carbon Dioxide 26 mmol/L 22-32 Anion Gap 5 mmol/L 2-11 Glucose 107 mg/dL High 70-100 Blood Urea Nitrogen 20 mg/dL 6-24 Creatinine 0.73 mg/dL 0.51-0.95 BUN/Creatinine Ratio 27.4 High 8-20 Calcium 9.0 mg/dL 8.6-10.3 Total Protein 6.7 g/dL 6.4-8.9 Albumin 3.7 g/dL 3.2-5.2 Globulin 3.0 g/dL 2-4 Albumin/Globulin Ratio 1.2 1-3 Total Bilirubin 0.80 mg/dL 0.2-1.0 Alkaline Phosphatase 78 U/L 34-104 Alt 16 U/L 7-52 Ast 21 U/L 13-39 Egfr Non- 78.6 >60 Egfr 101.1 >60 3 Laboratory test finding 06/07/2016 Magnesium 1.9 mg/dL 1.9-2.7 Troponin I 0.00 ng/mL <0.03 4 Laboratory test finding 06/04/2016 Inr (Fma) 2.7 2-3 Laboratory test finding 05/14/2016 Inr (Fma) 2.4 2-3 Laboratory test finding 04/29/2016 Inr (Fma) 3.0 3.0 Ua - Non Micro (Fma) 04/29/2016 Appearance clear Color yellow Glucose, Urine (Fma/CMC/CTX) neg Bilirubin neg Ketones neg SP Grav 1.025 Blood trace-lysed 5 PH 5.0 Protein neg Urobil 0.2 Nitrite neg Leukocytes (Fma/CMC/Centrex) small Complete Blood Count 04/29/2016 WBC 5.9 x10^3/UL 3.6-9.6 RBC 4.82 x10^6/UL 3.90-5.70 HGB 14.7 g/dL 12.1-17.2 HCT 43 % 36-50 MCV 89.0 fL 82.2-97.4 MCH 30.4 pg 27.6-33.3 MCHC 34.1 g/dL 33.0-35.5 RDW 13.4 % 11.6-13.7 PLT 255 x10^3/UL 150-400 MPV 7.1 fL Low 7.4-10.4 Gran # 4.0 x10^3/UL 1.5-7.2 Lymph# 1.6 x10^3/UL 0.7-4.9 Rains# 0.3 x10^3/UL 0.1-0.9 Gran % 66.7 % 42.2-75.2 Lymph % 28.2 % 20.5-51.1 Rains% 5.1 % 1.7-9.3 Comprehensive Metabolic Prof 04/29/2016 Sodium 139 mEq/L 134-149 Potassium 4.6 mEq/L 3.6-5.5 Chloride 101 mEq/L 94-112 Carbon Dioxide 28 mEq/L 21-32 Glucose 101 mg/dL 70-105 BUN 18 mg/dL 6-26 Creatinine 0.7 mg/dL 0.6-1.4 BUN/Creat Ratio 25.7 CALC 8.0-36.0 Calcium 9.8 mg/dL 8.6-10.2 Total Protein 6.9 g/dL 6.4-8.3 Albumin 4.3 g/dL 3.8-5.5 Globulin 2.6 g/dL 2.0-4.8 A/G Ratio 1.7 CALC 0.6-2.3 Alk. Phosphatase 91 U/L 30-110 Alt (SGPT) 21 U/L 7-35 Ast (Sgot) 25 U/L 5-34 Total Bilirubin 0.9 mg/dL 0.2-1.3 GFR Non- >60 ml/min/1.73m^ >=60 GFR >60 ml/min/1.73m^ >=60 Laboratory test finding 04/16/2016 Inr (Fma) 2.6 2-3 Laboratory test finding 04/09/2016 Inr (Fma) 3.2 High 2-3 Laboratory test finding 03/12/2016 Inr (Fma) 2.5 2.0-3.0 Laboratory test finding 02/20/2016 Inr (Fma) 2.8 2.0-3.0 Laboratory test finding 01/30/2016 Inr (Fma) 2.2 2.0-3.0 Laboratory test finding 01/16/2016 Inr (Fma) 2.2 2.0-3.0 Laboratory test finding 01/07/2016 Inr (Fma) 2.0 2.0-3.0 Laboratory test finding 12/24/2015 Inr (Fma) 2.7 2.0-3.0 Laboratory test finding 12/10/2015 Inr (Fma) 2.7 2.0-3.0 Laboratory test finding 12/01/2015 Inr (Fma) 2.5 2.0-3.0 Laboratory test finding 11/24/2015 Inr (Fma) 2.6 2-3 Laboratory test finding 11/17/2015 Inr (Fma) 2.8 2.0-3.0 Laboratory test finding 11/10/2015 Inr (Fma) 2.2 2-3 Laboratory test finding 11/04/2015 Inr (Fma) 2.1 2.0-3.0 Laboratory test finding 11/01/2015 Inr (Fma) 3.1 High 2.0-3.0 Laboratory test finding 2015 Inr (Fma) 2.6 2-3 Laboratory test finding 10/13/2015 Inr (Fma) 2.4 2.0-3.0 Laboratory test finding 10/03/2015 Inr (Fma) 2.2 2.0-3.0 Laboratory test finding 09/22/2015 Inr (Fma) 2.8 2.0-3.0 Laboratory test finding 09/12/2015 Inr (Fma) 2.4 2-3 Laboratory test finding 09/05/2015 Inr (Fma) 1.8 Low 2.0-3.0 Laboratory test finding 08/22/2015 Inr (Fma) 2.6 2-3 Laboratory test finding 08/15/2015 Inr (Fma) 2.8 2.0-3.0 Laboratory test finding 08/06/2015 Inr (Fma) 2.7 2-3 Laboratory test finding 07/29/2015 Inr (Fma) 2.8 2.0-3.0 Laboratory test finding 07/22/2015 Inr (Fma) 3.0 2.0-3.0 Laboratory test finding 07/15/2015 Inr (Fma) 2.3 2.0-3.0 Laboratory test finding 07/11/2015 Inr (Fma) 3.5 High 2.0-3.0 Laboratory test finding 07/05/2015 Inr (Fma) 2.7 2-3 Laboratory test finding 07/02/2015 Inr (Fma) 2.2 2.0-3.0 Laboratory test finding 06/26/2015 Inr (Fma) 3.1 High 2.0-3.0 Laboratory test finding 06/20/2015 Inr (Fma) 3.2 High 2.0-3.0 Laboratory test finding 06/13/2015 Inr (Fma) 2.6 2-3 Laboratory test finding 06/06/2015 Inr (Fma) 2.2 2.0-3.0 Laboratory test finding 05/30/2015 Inr (Fma) 2.5 2.0-3.0 Laboratory test finding 05/23/2015 Inr (Fma) 3.2 High 2.0-3.0 Laboratory test finding 05/16/2015 Inr (Fma) 2.4 2.0-3.0 Laboratory test finding 05/13/2015 Inr (Fma) 2.1 High 0.9-1.1 Laboratory test finding 05/09/2015 Inr (Fma) 3.1 High 2.0-3.0 Laboratory test finding 05/06/2015 Inr (Fma) 2.5 2.0-3.0 Laboratory test finding 05/02/2015 Inr (Fma) 3.0 2-3 Laboratory test finding 04/28/2015 Inr (Fma) 4.0 High 2.0-3.0 Urinalysis Profile 04/26/2015 Urine Color Straw Urine Appearance Clear Urine Specific Tillman 1.005 Low 1.010-1.030 Urine pH 6.0 5-9 Urine Urobilinogen Negative Negative Urine Ketones Negative Negative Urine Protein Negative Negative Urine Leukocytes Trace Negative Urine Blood 1+ Negative Urine Nitrite Negative Negative Urine Bilirubin Negative Negative Urine Glucose Negative Negative Urine White Blood Cell Absent Absent Urine Red Blood Cell 1+(3-5/hpf) Absent Urine Bacteria Absent Absent Urine Squamous Epithelial Cell Present Absent CBC Auto Diff 04/26/2015 White Blood Count 5.4 10^3/uL 4.8-10.8 Red Blood Count 4.89 10^6/uL 4.0-5.4 Hemoglobin 14.0 g/dL 12.0-16.0 Hematocrit 43 % 35-47 Mean Corpuscular Volume 87 fL 80-97 Mean Corpuscular Hemoglobin 29 pg 27-31 Mean Corpuscular HGB Conc 33 g/dL 31-36 Red Cell Distribution Width 13 % 10.5-15 Platelet Count 258 10^3/uL 150-450 Mean Platelet Volume 8 um3 7.4-10.4 Abs Neutrophils 4.2 10^3/uL 1.5-7.7 Abs Lymphocytes 0.4 10^3/uL Low 1.0-4.8 Abs Monocytes 0.3 10^3/uL 0-0.8 Abs Eosinophils 0.3 10^3/uL 0-0.6 Abs Basophils 0.2 10^3/uL 0-0.2 Abs Nucleated RBC 0 10^3/uL Granulocyte % 78.3 % 38-83 Lymphocyte % 8.3 % Low 25-47 Monocyte % 4.8 % 1-9 Eosinophil % 5.4 % 0-6 Basophil % 3.2 % High 0-2 Nucleated Red Blood Cells % 0 Inr/Protime 04/26/2015 Inr 2.89 High 0.78-1.07 Laboratory test finding 04/26/2015 Partial Thrombo Time 46.7 seconds High 26.0-36.3 PTT Urine Culture And Sensitivities SEE RESULT BELOW 6 Laboratory test finding 04/26/2015 Lipase 17 U/L 11.0-82.0 C Reactive Protein 32.35 mg/L High < 5.00 7 Comp Metabolic Panel 04/26/2015 Sodium 135 mmol/L 133-145 Potassium 3.8 mmol/L 3.5-5.0 Chloride 103 mmol/L 101-111 Co2 Carbon Dioxide 24 mmol/L 22-32 Anion Gap 8 mmol/L 2-11 Glucose 129 mg/dL High 70-100 Blood Urea Nitrogen 10 mg/dL 6-24 Creatinine 0.66 mg/dL 0.51-0.95 BUN/Creatinine Ratio 15.2 8-20 Calcium 9.1 mg/dL 8.6-10.3 Total Protein 7.1 g/dL 6.4-8.9 Albumin 3.9 g/dL 3.2-5.2 Globulin 3.2 g/dL 2-4 Albumin/Globulin Ratio 1.2 1-3 Total Bilirubin 1.00 mg/dL 0.2-1.0 Alkaline Phosphatase 74 U/L 34-104 Alt 15 U/L 7-52 Ast 20 U/L 13-39 Egfr Non- 88.5 >60 Egfr 113.9 >60 8 Laboratory test finding 04/24/2015 Inr (Fma) 2.6 2-3 Laboratory test finding 04/10/2015 Inr (a) 2.3 2.0-3.0 Comprehensive Metabolic Prof 04/04/2015 Sodium 138 mEq/L 134-149 Potassium 4.5 mEq/L 3.6-5.5 Chloride 99 mEq/L 94-112 Carbon Dioxide 25 mEq/L 21-32 Glucose 127 mg/dL High 70-105 9 BUN 17 mg/dL 6-26 Creatinine 0.6 mg/dL 0.6-1.4 BUN/Creat Ratio 28.3 CALC 8.0-36.0 Calcium 9.8 mg/dL 8.6-10.2 Total Protein 7.3 g/dL 6.4-8.3 Albumin 4.2 g/dL 3.8-5.5 Globulin 3.1 g/dL 2.0-4.8 A/G Ratio 1.4 CALC 0.6-2.3 Alk. Phosphatase 86 U/L 30-110 Alt (SGPT) 24 U/L 7-35 Ast (Sgot) 26 U/L 5-34 Total Bilirubin 0.7 mg/dL 0.2-1.3 Ua - Micro (Fma) 04/04/2015 Appearance yellow Color clear Glucose, Urine (Fma/CMC/CTX) neg Bilirubin neg Ketones neg SP Grav 1.015 Blood trace-lysed PH 5.5 Protein neg Urobil 0.2 Nitrite neg Leukocytes (Fma/CMC/Centrex) neg Hyaline - /Lpf Granular - /Lpf WBC (a,Centrex) 0-1 RBC - Mucus - /Lpf Epith occ /Lpf Bacteria trace /Hpf Amorphous - /Lpf Crystals, Fluid (Fma/CMC/CTX) - Z#Comments - Lipid Profile 04/04/2015 Cholesterol 224 mg/dL High 120-200 Triglycerides 91 mg/dL 30-200 HDL Cholesterol 74 mg/dL 30-85 LDL (Calculated) 132 CALC High 0-129 VLDL Cholesterol 18 mg/dL 0-50 HDL Risk Factor 3.0 CALC 0.0-4.4 CBC Electronic (Fma) 04/04/2015 WBC 11.2 High 3.6-9.6 10 RBC 4.72 3.90-5.70 Hemoglobin (Fma/CMC/CTX) 13.8 g/dL 12.1 - 17.2 Hematocrit (Fma/CMC/CTX) 41.3 % 36.1 - 50.3 Platelets 297 10^3/ul 150-400 Lymph% 11.0 % Low 17.0-48.0 Mixed% 3.0 Neutrophils % 86.0 Mean Corpuscular Vol 87 82.2-97.4 Mean Corpuscular Hemoglobin 29.2 27.6-33.3 Mean Corpuscular Hemo Concen 33.5 32.0-36.0 RDW 12.9 11.6-13.7 Mean Platelet Volume 6.6 5.5-11.0 Laboratory test finding 04/03/2015 Inr (Fma) 2.2 2.0-3.0 Laboratory test finding 03/27/2015 Inr (Fma) 1.9 Low 2.0-3.0 Laboratory test finding 03/13/2015 Inr (Fma) 2.3 2.0-3.0 Laboratory test finding 02/27/2015 Inr (Fma) 2.2 2.0-3.0 Laboratory test finding 02/20/2015 Inr (Fma) 2.3 2.0-3.0 Laboratory test finding 02/13/2015 Inr (Fma) 2.2 2.0-3.0 Laboratory test finding 02/07/2015 Inr (Fma) 1.9 Low 2.0-3.0 Laboratory test finding 01/31/2015 Inr (Fma) 2.4 2.0-3.0 Laboratory test finding 01/27/2015 Inr (Fma) 2.0 2.0-3.0 Laboratory test finding 01/20/2015 Inr (Fma) 2.2 2.0-3.0 Laboratory test finding 01/13/2015 Inr (Fma) 2.1 2.0-3.0 Laboratory test finding 01/06/2015 Inr (Fma) 2.1 2-3 Laboratory test finding 12/31/2014 Inr (Fma) 2.4 2.0-3.0 Laboratory test finding 12/27/2014 Inr (Fma) 2.3 2.0-3.0 Laboratory test finding 12/23/2014 Inr (Fma) 2.4 2.0-3.0 Laboratory test finding 12/20/2014 Inr (Fma) 2.6 2-3 Laboratory test finding 12/16/2014 Inr (Fma) 2.3 2.0-3.0 Laboratory test finding 12/13/2014 Inr (Fma) 2.5 2.0-3.0 Laboratory test finding 12/09/2014 Inr (Fma) 3.2 High 2.0-3.0 Laboratory test finding 12/06/2014 Inr (Fma) 2.3 2.0-3.0 Laboratory test finding 12/02/2014 Inr (Fma) 2.7 2.0-3.0 Laboratory test finding 11/29/2014 Inr (Fma) 2.4 2.0-3.0 Laboratory test finding 11/25/2014 Inr (Fma) 3.1 High 2-3 Laboratory test finding 11/22/2014 Inr (Fma) 2.9 2.0-3.0 Laboratory test finding 11/19/2014 Inr (Fma) 2.5 2-3 Laboratory test finding 11/15/2014 Inr (Fma) 2.5 2.0-3.0 Laboratory test finding 11/11/2014 Inr (Fma) 2.1 2.0-3.0 Laboratory test finding 11/08/2014 Inr (Fma) 3.0 2-3 Laboratory test finding 11/04/2014 Inr (Fma) 3.6 High 2-3 Laboratory test finding 11/01/2014 Inr (Fma) 3.0 2.0-3.0 Laboratory test finding 10/29/2014 Inr (Fma) 2.3 2.0-3.0 Laboratory test finding 10/25/2014 Inr (Fma) 2.3 2-3 Laboratory test finding 10/23/2014 Inr (Fma) 2.5 2.0-3.0 Laboratory test finding 10/21/2014 Inr (Fma) 1.7 Low 2.0-3.0 Laboratory test finding 10/18/2014 Inr (Fma) 4.2 High 2-3 Laboratory test finding 10/16/2014 Troponin I 0.00 ng/mL <0.03 11 CBC Auto Diff 10/16/2014 White Blood Count 7.7 10^3/uL 4.8-10.8 Red Blood Count 4.94 10^6/uL 4.0-5.4 Hemoglobin 14.9 g/dL 12.0-16.0 Hematocrit 44 % 35-47 Mean Corpuscular Volume 88 fL 80-97 Mean Corpuscular Hemoglobin 30 pg 27-31 Mean Corpuscular HGB Conc 34 g/dL 31-36 Red Cell Distribution Width 13 % 10.5-15 Platelet Count 228 10^3/uL 150-450 Mean Platelet Volume 8 um3 7.4-10.4 Abs Neutrophils 6.1 10^3/uL 1.5-7.7 Abs Lymphocytes 1.2 10^3/uL 1.0-4.8 Abs Monocytes 0.4 10^3/uL 0-0.8 Abs Eosinophils 0 10^3/uL 0-0.6 Abs Basophils 0 10^3/uL 0-0.2 Abs Nucleated RBC 0 10^3/uL Granulocyte % 78.8 % 38-83 Lymphocyte % 15.2 % Low 25-47 Monocyte % 5.4 % 1-9 Eosinophil % 0.3 % 0-6 Basophil % 0.3 % 0-2 Nucleated Red Blood Cells % 0 Comp Metabolic Panel 10/16/2014 Sodium 138 mmol/L 133-145 Potassium 4.0 mmol/L 3.5-5.0 Chloride 105 mmol/L 101-111 Co2 Carbon Dioxide 25 mmol/L 22-32 Anion Gap 8 mmol/L 2-11 Glucose 103 mg/dL High 70-100 Blood Urea Nitrogen 10 mg/dL 6-24 Creatinine 0.66 mg/dL 0.51-0.95 BUN/Creatinine Ratio 15.2 8-20 Calcium 9.8 mg/dL 8.6-10.3 Total Protein 7.0 g/dL 6.4-8.9 Albumin 4.3 g/dL 3.2-5.2 Globulin 2.7 g/dL 2-4 Albumin/Globulin Ratio 1.6 1-3 Total Bilirubin 1.30 mg/dL High 0.2-1.0 Alkaline Phosphatase 82 U/L 34-104 Alt 19 U/L 7-52 Ast 22 U/L 13-39 Egfr Non- 88.8 >60 Egfr 114.2 >60 12 Laboratory test finding 10/16/2014 Lipase 7 U/L Low 11.0-82.0 Troponin I 0.00 ng/mL <0.03 13 Inr/Protime 10/16/2014 Inr 3.58 High 0.85-1.06 Laboratory test finding 10/14/2014 Inr (Fma) 3.6 High 2.0-3.0 Comprehensive Metabolic Prof 10/14/2014 Sodium 140 mEq/L 134-149 Potassium 4.3 mEq/L 3.6-5.5 Chloride 102 mEq/L 94-112 Carbon Dioxide 27 mEq/L 21-32 Glucose 111 mg/dL High 70-105 14 BUN 14 mg/dL 6-26 Creatinine 0.6 mg/dL 0.6-1.4 BUN/Creat Ratio 23.3 CALC 8.0-36.0 Calcium 9.7 mg/dL 8.6-10.2 Total Protein 6.9 g/dL 6.4-8.3 Albumin 4.3 g/dL 3.8-5.5 Globulin 2.6 g/dL 2.0-4.8 A/G Ratio 1.7 CALC 0.6-2.3 Alk. Phosphatase 87 U/L 30-110 Alt (SGPT) 24 U/L 7-35 Ast (Sgot) 23 U/L 5-34 Total Bilirubin 1.1 mg/dL 0.2-1.3 Laboratory test finding 10/11/2014 Inr (Fma) 2.6 2.0-3.0 Laboratory test finding 10/07/2014 Inr (Fma) 2.5 2-3 Laboratory test finding 10/04/2014 Inr (Fma) 3.1 High 2.0-3.0 Laboratory test finding 09/30/2014 Inr (Fma) 2.9 2.0-3.0 Laboratory test finding 09/27/2014 Inr (Fma) 2.4 2.0-3.0 Laboratory test finding 09/23/2014 Inr (Fma) 3.3 High 2-3 Laboratory test finding 09/20/2014 Inr (Fma) 3.5 High 2-3 CBC Auto Diff 09/17/2014 White Blood Count 6.0 10^3/uL 4.8-10.8 Red Blood Count 4.78 10^6/uL 4.0-5.4 Hemoglobin 14.1 g/dL 12.0-16.0 Hematocrit 41 % 35-47 Mean Corpuscular Volume 87 fL 80-97 Mean Corpuscular Hemoglobin 29 pg 27-31 Mean Corpuscular HGB Conc 34 g/dL 31-36 Red Cell Distribution Width 13 % 10.5-15 Platelet Count 214 10^3/uL 150-450 Mean Platelet Volume 9 um3 7.4-10.4 Abs Neutrophils 4.1 10^3/uL 1.5-7.7 Abs Lymphocytes 1.2 10^3/uL 1.0-4.8 Abs Monocytes 0.5 10^3/uL 0-0.8 Abs Eosinophils 0.1 10^3/uL 0-0.6 Abs Basophils 0 10^3/uL 0-0.2 Abs Nucleated RBC 0 10^3/uL Granulocyte % 68.8 % 38-83 Lymphocyte % 20.8 % Low 25-47 Monocyte % 7.9 % 1-9 Eosinophil % 1.8 % 0-6 Basophil % 0.7 % 0-2 Nucleated Red Blood Cells % 0 Comp Metabolic Panel 09/17/2014 Sodium 137 mmol/L 133-145 Potassium 3.9 mmol/L 3.5-5.0 15 Chloride 107 mmol/L 101-111 Co2 Carbon Dioxide 21 mmol/L Low 22-32 Anion Gap 9 mmol/L 2-11 Glucose 113 mg/dL High 70-100 Blood Urea Nitrogen 16 mg/dL 6-24 Creatinine 0.68 mg/dL 0.51-0.95 BUN/Creatinine Ratio 23.5 High 8-20 Calcium 9.4 mg/dL 8.6-10.3 Total Protein 6.9 g/dL 6.4-8.9 Albumin 4.1 g/dL 3.2-5.2 Globulin 2.8 g/dL 2-4 Albumin/Globulin Ratio 1.5 1-3 Total Bilirubin 0.80 mg/dL 0.2-1.0 Alkaline Phosphatase 80 U/L 34-104 Alt 73 U/L High 7-52 Ast 78 U/L High 13-39 Egfr Non- 85.8 >60 Egfr 110.3 >60 16 Laboratory test finding 09/17/2014 Troponin I 0.03 ng/mL High <0.03 17 Inr/Protime 09/17/2014 Inr 2.30 High 0.85-1.06 Laboratory test finding 09/16/2014 Inr (Fma) 2.5 2.0-3.0 CBC Auto Diff 09/09/2014 White Blood Count 7.6 10^3/uL 4.8-10.8 Red Blood Count 4.44 10^6/uL 4.0-5.4 Hemoglobin 12.9 g/dL 12.0-16.0 Hematocrit 40 % 35-47 Mean Corpuscular Volume 89 fL 80-97 Mean Corpuscular Hemoglobin 29 pg 27-31 Mean Corpuscular HGB Conc 33 g/dL 31-36 Red Cell Distribution Width 13 % 10.5-15 Platelet Count 183 10^3/uL 150-450 Mean Platelet Volume 8 um3 7.4-10.4 Abs Neutrophils 5.2 10^3/uL 1.5-7.7 Abs Lymphocytes 1.7 10^3/uL 1.0-4.8 Abs Monocytes 0.5 10^3/uL 0-0.8 Abs Eosinophils 0.1 10^3/uL 0-0.6 Abs Basophils 0 10^3/uL 0-0.2 Abs Nucleated RBC 0 10^3/uL Granulocyte % 68.7 % 38-83 Lymphocyte % 22.4 % Low 25-47 Monocyte % 6.4 % 1-9 Eosinophil % 1.9 % 0-6 Basophil % 0.6 % 0-2 Nucleated Red Blood Cells % 0 Inr/Protime 09/09/2014 Inr 0.85 0.85-1.06 Laboratory test 09/09/2014 D Dimer Quantitative > 1050 ng/mL High Less Than 230 18 finding Comp Metabolic Panel 09/09/2014 Sodium 138 mmol/L 133-145 Potassium 4.3 mmol/L 3.5-5.0 19 Chloride 106 mmol/L 101-111 Co2 Carbon Dioxide 27 mmol/L 22-32 Anion Gap 5 mmol/L 2-11 Glucose 148 mg/dL High 70-100 Blood Urea Nitrogen 20 mg/dL 6-24 Creatinine 0.79 mg/dL 0.51-0.95 BUN/Creatinine Ratio 25.3 High 8-20 Calcium 9.0 mg/dL 8.6-10.3 Total Protein 6.6 g/dL 6.4-8.9 Albumin 3.9 g/dL 3.2-5.2 Globulin 2.7 g/dL 2-4 Albumin/Globulin Ratio 1.4 1-3 Total Bilirubin 0.60 mg/dL 0.2-1.0 Alkaline Phosphatase 75 U/L 34-104 Alt 15 U/L 7-52 Ast 24 U/L 13-39 Egfr Non- 72.2 >60 Egfr 92.8 >60 20 Laboratory test finding 09/09/2014 Troponin I 0.23 ng/mL High <0.03 21 CBC Auto Diff 05/27/2014 White Blood Count 9.8 10^3/uL 4.8-10.8 Red Blood Count 4.77 10^6/uL 4.0-5.4 Hemoglobin 14.2 g/dL 12.0-16.0 Hematocrit 42 % 35-47 Mean Corpuscular Volume 87 fL 80-97 Mean Corpuscular Hemoglobin 30 pg 27-31 Mean Corpuscular HGB Conc 34 g/dL 31-36 Red Cell Distribution Width 13 % 10.5-15 Platelet Count 214 10^3/uL 150-450 Mean Platelet Volume 8 um3 7.4-10.4 Abs Neutrophils 7.7 10^3/uL 1.5-7.7 Abs Lymphocytes 1.5 10^3/uL 1.0-4.8 Abs Monocytes 0.5 10^3/uL 0-0.8 Abs Eosinophils 0.1 10^3/uL 0-0.6 Abs Basophils 0 10^3/uL 0-0.2 Abs Nucleated RBC 0 10^3/uL Granulocyte % 78.1 % 38-83 Lymphocyte % 15.1 % Low 25-47 Monocyte % 5.5 % 1-9 Eosinophil % 1.1 % 0-6 Basophil % 0.2 % 0-2 Nucleated Red Blood Cells % 0 Laboratory test finding 05/27/2014 Lactic Acid 0.6 mmol/L 0.5-2.2 Comp Metabolic Panel 05/27/2014 Sodium 133 mmol/L 133-145 Potassium 4.1 mmol/L 3.7-5.6 Chloride 101 mmol/L 101-111 Co2 Carbon Dioxide 25 mmol/L 22-32 Anion Gap 7 mmol/L 2-11 Glucose 116 mg/dL High 70-100 Blood Urea Nitrogen 16 mg/dL 6-24 Creatinine 0.71 mg/dL 0.51-0.95 BUN/Creatinine Ratio 22.5 High 8-20 Calcium 9.4 mg/dL 8.6-10.3 Total Protein 7.1 g/dL 6.4-8.9 Albumin 4.1 g/dL 3.2-5.2 Globulin 3.0 g/dL 2-4 Albumin/Globulin Ratio 1.4 1-3 Total Bilirubin 0.80 mg/dL 0.2-1.0 Alkaline Phosphatase 79 U/L 34-104 Alt 15 U/L 7-52 Ast 20 U/L 13-39 Egfr Non- 81.6 >60 Egfr 105.0 >60 22 Laboratory test finding 05/27/2014 Magnesium 1.7 mg/dL Low 1.9-2.7 Amylase 62 U/L 29-103 Lipase 17 U/L 11.0-82.0 Creatine Kinase 49 U/L 10-223 Troponin I 0.01 ng/mL <0.03 23 C Reactive Protein 4.89 mg/L < 5.00 24 Urinalysis Profile 05/27/2014 Urine Color Yellow Urine Appearance Clear Urine Specific Tillman 1.016 1.010-1.030 Urine pH 5.0 5-9 Urine Urobilinogen Negative Negative Urine Ketones Negative Negative Urine Protein Negative Negative Urine Leukocytes Trace Negative Urine Blood Negative Negative Urine Nitrite Negative Negative Urine Bilirubin Negative Negative Urine Glucose Negative Negative Urine White Blood Cell 1+(6-10/hpf) Absent Urine Red Blood Cell Trace Absent Urine Bacteria Absent Absent Urine Squamous Epithelial Cell Present Absent Urine Culture And 05/27/2014 Urine Culture (SEE NOTE) 25 Sensitivities Cytology 11/24/2012 Cy RUN DATE: <SEE NOTE> Human Papilloma Virus 11/24/2012 Human Papillomavirus CERV Source Human Papillomavirus High Risk Negative Negative 27 Comprehensive Metabolic Prof 09/28/2012 Albumin 4.4 g/dL 3.8-5.5 Alk. Phos. 94 U/L 30-110 Alt (SGPT) 20 U/L 7-35 Ast (Sgot) 25 U/L 5-34 BUN 18 mg/dL 6-26 Calcium 9.4 mg/dL 8.6-10.2 Chloride 103 mEq/L 94-112 Creatinine 0.7 mg/dL 0.6-1.4 Carbon Dioxide 29 mEq/L 21-32 Glucose 97 mg/dL 70-105 Sodium 141 mEq/L 134-149 Total Bilirubin 1.0 mg/dL 0.2-1.3 Total Protein 6.6 g/dL 6.3-8.1 Potassium 4.7 mEq/L 3.6-5.5 Globulin 2.1 g/dL 2.0-4.8 A/G Ratio 2.1 Calc 0.6-2.2 BUN/Creat Ratio 24.4 Calc 8.0-36.0 Lipid Profile 09/28/2012 Cholesterol 211 mg/dL High 120-200 HDL 63 mg/dL 30-85 Triglycerides 83 mg/dL 30-200 HDL Risk Factor 3.3 CALC 0.0-4.4 LDL (Calculated) 131 CALC High 0-129 VLDL (Calculated) 17 mg/dL 0-50 CBC Electronic (a) 09/28/2012 WBC 5.8 3.6-9.6 RBC 4.75 3.90-5.70 Hemoglobin (Fma/CMC/CTX) 14.3 g/dL 12.1 - 17.2 Hematocrit (Fma/CMC/CTX) 42.0 % 36.1 - 50.3 Platelets 236 10^3/ul 150-400 Lymph% 29.6 20.5-51.1 Mixed% 6.9 Neutrophils % 63.5 Mean Corpuscular Vol 88 82.2-97.4 Mean Corpuscular Hemoglobin 30.1 27.6-33.3 Mean Corpuscular Hemo Concen 34.1 32.0-36.0 RDW 11.1 Low 11.6-13.7 Mean Platelet Volume 6.9 6.5-11.0 Laboratory test finding 09/28/2012 Varicella Zoster V 1.90 index Immune > 1.09 28 AB,Igg Ua - Non Micro (a) 09/21/2012 Appearance clear Color yellow Glucose, Urine (Fma/CMC/CTX) neg Bilirubin neg Ketones neg SP Grav 1.020 Blood neg PH 5.0 Protein neg Urobil 0.2 Nitrite neg Leukocytes (Fma/CMC/Centrex) neg Clotting Profile DR Aparicio 07/06/2012 Antithrombin Antigen 110 % 75-130 29 Protein S Functional 83 % 60-145 29 Protein C&S Ag Panel 07/06/2012 Protein C Antigen 92 % 70-140 29 Protein S, Total 103 % 58-150 29 Protein S, Free 86 % 56-124 29 Factor V Leiden Mut 07/06/2012 Factor V Leiden SEE NOTE 29, 30 Comment: SEE NOTE 29, 31 Lupus Anticoag Reflex 07/06/2012 PTT 31.8 seconds 23.7-35.5 29 Dilute Christiano's 07/06/2012 dRVVT 43.8 sec 0.0-55.1 29 Viper Venom Anticardiolipin 07/06/2012 Anticardiolipin <9 GPLU/mL 0-14 29, 32 Iga/Igg/Igm QN Ab,IgG,Qn Anticardiolipin Ab,IgM,Qn <9 MPLU/mL 0-12 29, 33 Anticardiolipin Ab,IgA,Qn <9 APLU/mL 0-11 29, 34 Laboratory test finding 06/07/2012 Inr (Fma) 2.3 2-3 Laboratory test finding 05/10/2012 Inr (Fma) 2.5 2-3 Laboratory test finding 04/28/2012 Inr (Fma) 3.0 2-3 Laboratory test finding 04/19/2012 Inr (Fma) 3.4 High 2.0-3.0 Laboratory test finding 03/21/2012 Inr (Fma) 2.8 2.0-3.0 Laboratory test finding 02/17/2012 Inr (Fma) 2.3 2.0-3.0 Laboratory test finding 01/20/2012 Inr (Fma) 2.2 2-3 Laboratory test finding 01/06/2012 Inr (Fma) 2.3 2-3 Laboratory test finding 12/23/2011 Inr (Fma) 2.0 2-3 Laboratory test finding 11/25/2011 Inr (Fma) 2.4 2-3 Laboratory test finding 11/04/2011 Inr (Fma) 2.5 2-3 Laboratory test finding 10/21/2011 Inr (Fma) 2.6 2-3 Laboratory test finding 10/14/2011 Inr (Fma) 3.2 High 2-3 Surgical Pathology 10/08/2011 Surgical Pathology 35 <SEE NOTE> Laboratory test finding 09/30/2011 Inr (Fma) 2.4 2-3 Comp Metabolic Panel 09/23/2011 Sodium 140 mmol/L 135-145 Potassium 4.5 mmol/L 3.5-5.0 Chloride 104 mmol/L 101-111 Co2 (Carbon Dioxide) 30.0 mmol/L 22-32 Anion Gap 6.0 mmol/L 2-11 36 Glucose 89 mg/dL 70-100 BUN 18 mg/dL 6-24 Creatinine 0.7 mg/dL 0.50-1.40 One Over Creatinine 1.42 BUN/Creatinine Ratio 25.7 High 8-20 Calcium 9.4 mg/dL 8.1-9.9 Total Protein 6.5 GM/DL 6.2-8.1 Albumin 4.0 GM/DL 3.2-5.2 Globulin 2.5 GM/DL 2-4 Albumin/Globulin Ratio 1.6 1-3 Bilirubin Total 1.1 mg/dL 0.4-1.5 37 Alkaline Phosphatase 85 U/L 30-110 Alt (SGPT) 20 U/L 14-54 Ast (Sgot) 24 U/L 12-42 eGFR Non- 83.7 > 60 eGFR 107.7 > 60 38 Laboratory test finding 09/23/2011 C Reactive Protein < 0.5 mg/dL Less Than 0.5 CBC With Manual Diff 09/23/2011 White Blood Count 6.1 CUMM 4.8-10.8 Red Cell Count 4.42 CUMM 4.2-5.4 Hemoglobin 13.2 g/dL 12.0-16.0 Hematocrit 38 % 35-47 Mean Corpuscular Volume 86 um3 79-97 Mean Corpuscular Hemoglob 30 pg 27-31 Mean Corpuscular HGB Cone 35 g/dL 32-36 Redcell Distribution WDTH 14 % 10.5-15 Platelet Count 241 CUMM 150-450 Mean Platelet Volume 8.3 um3 7.4-10.4 Polysegmented Neutrophil 82 % 38-83 Lymphocyte 12 % Low 25-47 Monocyte 5 % 0-13 Basophil 1 % 0-2 Absolute Neutrophil Count 5.0 Anisocytosis SLIGHT Laboratory test finding 09/23/2011 Erythrocyte Sed Rate 9 MM/HR 0-40 Laboratory test finding 09/15/2011 Inr (Fma) 2.3 2-3 Laboratory test finding 09/09/2011 Inr (Fma) 3.1 High 2-3 Laboratory test finding 08/26/2011 Inr (Fma) 2.2 2.0-3.0 CBC No Diff 08/20/2011 White Blood Count 5.6 CUMM 4.8-10.8 Red Cell Count 4.46 CUMM 4.2-5.4 Hemoglobin 13.1 g/dL 12.0-16.0 Hematocrit 39 % 35-47 Mean Corpuscular Volume 87 um3 79-97 Mean Corpuscular Hemoglob 29 pg 27-31 Mean Corpuscular HGB Cone 34 g/dL 32-36 Redcell Distribution WDTH 14 % 10.5-15 Platelet Count 248 CUMM 150-450 Mean Platelet Volume 8.4 um3 7.4-10.4 Protime 08/20/2011 Inr 2.67 High 0.88-1.13 39 Protime 32.8 SEC High 10.3-13.5 40 Laboratory test finding 08/20/2011 Carcino Embryonic Antigen 0.71 NG/ML 0 -5 41 C Reactive Protein 0.5 mg/dL Less Than 0.5 Laboratory test finding 08/13/2011 Inr (Fma) 2.1 2.0-3.0 Laboratory test finding 08/09/2011 Inr (Fma) 2.1 2-3 Laboratory test finding 08/05/2011 Inr (Fma) 2.8 2-3 Laboratory test finding 08/02/2011 Inr (Fma) 3.6 High 2.0-3.0 Comp Metabolic Panel 07/28/2011 Sodium 135 mmol/L 135-145 Potassium 4.3 mmol/L 3.5-5.0 Chloride 101 mmol/L 101-111 Co2 (Carbon Dioxide) 28.0 mmol/L 22-32 Anion Gap 6.0 mmol/L 2-11 42 Glucose 121 mg/dL High 70-100 BUN 9 mg/dL 6-24 Creatinine 0.7 mg/dL 0.50-1.40 One Over Creatinine 1.42 BUN/Creatinine Ratio 12.9 8-20 Calcium 9.3 mg/dL 8.1-9.9 Total Protein 6.4 GM/DL 6.2-8.1 Albumin 3.8 GM/DL 3.2-5.2 Globulin 2.6 GM/DL 2-4 Albumin/Globulin Ratio 1.5 1-3 Bilirubin Total 1.0 mg/dL 0.4-1.5 43 Alkaline Phosphatase 85 U/L 30-110 Alt (SGPT) 29 U/L 14-54 Ast (Sgot) 30 U/L 12-42 eGFR Non- 83.7 > 60 eGFR 107.7 > 60 44 Laboratory test 07/28/2011 C Reactive Protein < 0.5 mg/dL Less Than 0.5 finding Protime 07/28/2011 Inr 1.98 High 0.82-1.17 45 Protime 24.2 SEC High 10.2-14.8 46 CBC With Manual Diff 07/28/2011 White Blood Count 6.3 CUMM 4.8-10.8 Red Cell Count 4.56 CUMM 4.2-5.4 Hemoglobin 13.6 g/dL 12.0-16.0 Hematocrit 40 % 35-47 Mean Corpuscular Volume 87 um3 79-97 Mean Corpuscular Hemoglob 30 pg 27-31 Mean Corpuscular HGB Cone 34 g/dL 32-36 Redcell Distribution WDTH 13 % 10.5-15 Platelet Count 255 CUMM 150-450 Mean Platelet Volume 8.3 um3 7.4-10.4 Polysegmented Neutrophil 74 % 38-83 Band Neutrophil 1 % 0-8 Lymphocyte 22 % Low 25-47 Monocyte 3 % 0-13 Absolute Neutrophil Count 4.7 RBC Morphology NORMAL Laboratory test finding 07/28/2011 Erythrocyte Sed Rate 6 MM/HR 0-40 Laboratory test finding 07/24/2011 Inr (Fma) 3.0 2-3 Laboratory test finding 07/21/2011 Inr (Fma) 2.3 2-3 Laboratory test finding 07/19/2011 Inr (Fma) 1.6 Low 2.0-3.0 Laboratory test finding 07/17/2011 Inr (Fma) 1.7 Low 2.0-3.0 Laboratory test finding 07/09/2011 Inr (Fma) 2.3 2-3 Laboratory test finding 07/05/2011 Inr (Fma) 1.9 Low 2.0-3.0 Laboratory test finding 07/03/2011 Inr (Fma) 3.1 High 2.0-3.0 Laboratory test finding 06/26/2011 Inr (Fma) 3.0 2-3 Laboratory test finding 06/23/2011 Inr (Fma) 3.1 High 2.0-3.0 Laboratory test finding 06/21/2011 Inr (Fma) 3.0 2.0-3.0 Laboratory test finding 06/19/2011 Inr (Fma) 2.6 2.0-3.0 Laboratory test finding 06/16/2011 Inr (Fma) 2.0 2.0-3.0 Laboratory test finding 06/14/2011 Inr (Fma) 1.4 Low 2.0-3.0 CBC Electronic (Fma) 06/05/2011 WBC 9.1 3.6-9.6 RBC 4.47 3.90-5.70 Hemoglobin (Fma/CMC/CTX) 13.5 g/dL 12.1 - 17.2 Hematocrit (Fma/CMC/CTX) 40.2 % 36.1 - 50.3 Platelets 264 10^3/ul 150-400 Lymph% 8.6 Low 20.5-51.1 Mixed% 5.6 Neutrophils % 85.8 Mean Corpuscular Vol 89.9 82.2-97.4 Mean Corpuscular Hemoglobin 30.2 27.6-33.3 Mean Corpuscular Hemo Concen 33.6 32.0-36.0 RDW 12.2 11.6-13.7 Mean Platelet Volume 9.7 6.5-11.0 Laboratory test finding 06/05/2011 C-Reactive Protein 8.0 mg/L High 0.0- 5.0 47 Comprehensive Metabolic Prof 06/05/2011 Albumin 4.5 g/dL 3.8-5.5 Alk. Phos. 87 U/L 30-110 Alt (SGPT) 23 U/L 7-35 Ast (Sgot) 23 U/L 5-34 BUN 11 mg/dL 6-26 Calcium 9.6 mg/dL 8.6-10.2 Chloride 103 mEq/L 94-112 Creatinine 0.8 mg/dL 0.6-1.4 Carbon Dioxide 23 mEq/L 21-32 Glucose 112 mg/dL High 70-105 48 Sodium 139 mEq/L 134-149 Total Bilirubin 0.5 mg/dL 0.2-1.3 Total Protein 7.0 g/dL 6.3-8.1 Potassium 4.3 mEq/L 3.6-5.5 Globulin 2.4 g/dL 2.0-4.8 A/G Ratio 1.9 Calc 0.6-2.2 BUN/Creat Ratio 13.5 Calc 8.0-36.0 Comp Metabolic Panel 05/29/2011 Sodium 139 mmol/L 135-145 Potassium 4.1 mmol/L 3.5-5.0 Chloride 102 mmol/L 101-111 Co2 (Carbon Dioxide) 29.0 mmol/L 22-32 Anion Gap 8.0 mmol/L 2-11 49 Glucose 106 mg/dL High 70-100 BUN 7 mg/dL 6-24 Creatinine 0.70 mg/dL 0.50-1.40 One Over Creatinine 1.40 BUN/Creatinine Ratio 10.0 8-20 Calcium 9.8 mg/dL 8.1-9.9 Total Protein 6.5 GM/DL 6.2-8.1 Albumin 4.1 GM/DL 3.2-5.2 Globulin 2.4 GM/DL 2-4 Albumin/Globulin Ratio 1.7 1-3 Bilirubin Total 2.0 mg/dL High 0.4-1.5 50 Alkaline Phosphatase 80 U/L 30-110 Alt (SGPT) 14 U/L 14-54 Ast (Sgot) 17 U/L 12-42 eGFR Non- 83.7 > 60 eGFR 107.7 > 60 51 CBC Auto Diff 05/29/2011 White Blood Count 10.9 CUMM High 4.8-10.8 Red Cell Count 4.56 CUMM 4.2-5.4 Hemoglobin 14.1 g/dL 12.0-16.0 Hematocrit 40 % 35-47 Mean Corpuscular Volume 88 um3 79-97 Mean Corpuscular Hemoglob 31 pg 27-31 Mean Corpuscular HGB Cone 35 g/dL 32-36 Redcell Distribution WDTH 13 % 10.5-15 Platelet Count 247 CUMM 150-450 Mean Platelet Volume 8.6 um3 7.4-10.4 52 Urine Culture & Sensitivi 05/29/2011 Urine Culture Sensitivi NG 53 Manual Differential 05/29/2011 Polysegmented Neutrophil 82 % 38-83 Band Neutrophil 3 % 0-8 Lymphocyte 10 % Low 25-47 Monocyte 5 % 0-13 Absolute Neutrophil Count 9.2 RBC Morphology NORMAL Ua - Micro (Fma) 05/29/2011 Appearance CLEAR Color YELLOW Glucose, Urine (Fma/CMC/CTX) NEG Bilirubin NEG Ketones NEG SP Grav 1.015 Blood SMALL PH 6.0 Protein NEG Urobil 0.2 Nitrite NEG Leukocytes (Fma/CMC/Centrex) TRACE Hyaline - /Lpf Granular - /Lpf WBC (Fma,Centrex) 5 RBC 5 Mucus (Fma/CBC/Centrex) - /Lpf Epith 0-1 /Lpf Bacteria FEW /Hpf Amorphous (Fma/CMC/Centrex) - /Lpf Crystals, Fluid (Fma/CMC/CTX) - Z#Comments - Basic Metabolic Profile 05/24/2011 BUN 14 mg/dL 6-26 Calcium 9.7 mg/dL 8.6-10.2 Chloride 103 mEq/L 94-112 Creatinine 0.6 mg/dL 0.6-1.4 Carbon Dioxide 21 mEq/L 21-32 Glucose 110 mg/dL High 70-105 54 Sodium 138 mEq/L 134-149 Potassium 4.0 mEq/L 3.6-5.5 BUN/Creat Ratio 23.0 Calc 8.0-36.0 Laboratory test finding 05/24/2011 Magnesium 1.8 mEq/L 1.2-2.1 TSH 1.44 mIU/L 0.50-6.00 CBC Electronic ([facility]) 05/24/2011 WBC 8.7 3.6-9.6 RBC 4.79 3.90-5.70 Hemoglobin (Fma/CMC/CTX) 14.2 g/dL 12.1 - 17.2 Hematocrit (Fma/CMC/CTX) 42.7 % 36.1 - 50.3 Platelets 287 10^3/ul 150-400 Lymph% 14.0 Low 20.5-51.1 Mixed% 3.6 Neutrophils % 82.4 Mean Corpuscular Vol 89 82.2-97.4 Mean Corpuscular Hemoglobin 29.7 27.6-33.3 Mean Corpuscular Hemo Concen 33.3 32.0-36.0 RDW 12.1 11.6-13.7 Mean Platelet Volume 7.7 6.5-11.0 Urinalysis 04/13/2011 Ua Color YELLOW Yellow 55 Appearance-Urine CLEAR Clear 55 Specific Tillman-Ur 1.019 1.010-1.030 55 Esterase-Urine NEGATIVE Negative 55 Nitrite NEGATIVE Negative 55 Ddldeevqfdfl-Fu-LHR NEGATIVE Negative 55 Protein-Urine NEGATIVE Negative 55 PH-Urine 5.5 5-9 55 Blood-Urine NEGATIVE Negative 55 Ketones-Urine NEGATIVE Negative 55 Bilirubin-Ur NEGATIVE Negative 55 Glucose-Urine NEGATIVE Negative 55 CBC Auto Diff 04/13/2011 White Blood Count 5.9 CUMM 4.8-10.8 55 Red Cell Count 4.49 CUMM 4.2-5.4 55 Hemoglobin 13.7 g/dL 12.0-16.0 55 Hematocrit 40 % 35-47 55 Mean Corpuscular Volume 89 um3 79-97 55 Mean Corpuscular Hemoglob 31 pg 27-31 55 Mean Corpuscular HGB Cone 34 g/dL 32-36 55 Redcell Distribution WDTH 12 % 10.5-15 55 Platelet Count 280 CUMM 150-450 55 Mean Platelet Volume 8.3 um3 7.4-10.4 55 Gran % 67.1 % 38-83 55 Lymph % 23.5 % Low 25-47 55 Mononuclear % 7.3 % 1-9 55 Eosinophil % 1.7 % 0-6 55 Basophil % 0.4 % 0-2 55 Abs Lymphs 1.4 1.0-4.8 55 Abs Mononuclear 0.4 0-0.8 55 Absolute Neutrophil Count 4.0 1.5-7.7 55 Abs Eosinophils 0.1 0-0.6 55 Abs Basophils 0 0-0.2 55 Protime 04/13/2011 Inr 0.94 0.82-1.17 55, 56 Protime 11.1 SEC 10.2-14.8 55, 57 Type And Screen 04/13/2011 Patient Blood Type O POSITIVE 55 Antibody Screen NEGATIVE 55 Specimen Discard Date 04/27/11 55, 58 Comp Metabolic Panel 04/13/2011 Sodium 139 mmol/L 135-145 55 Potassium 4.1 mmol/L 3.5-5.0 55 Chloride 106 mmol/L 101-111 55 Co2 (Carbon Dioxide) 28.0 mmol/L 22-32 55 Anion Gap 5.0 mmol/L 2-11 55, 59 Glucose 69 mg/dL Low 70-100 55 BUN 13 mg/dL 6-24 55 Creatinine 0.60 mg/dL 0.50-1.40 55 One Over Creatinine 1.60 55 BUN/Creatinine Ratio 21.7 High 8-20 55 Calcium 9.2 mg/dL 8.1-9.9 55 Total Protein 5.9 GM/DL Low 6.2-8.1 55 Albumin 3.8 GM/DL 3.2-5.2 55 Globulin 2.1 GM/DL 2-4 55 Albumin/Globulin Ratio 1.8 1-3 55 Bilirubin Total 1.0 mg/dL 0.4-1.5 55, 60 Alkaline Phosphatase 73 U/L 30-110 55 Alt (SGPT) 23 U/L 14-54 55 Ast (Sgot) 28 U/L 12-42 55 eGFR Non- 100.0 > 60 55 eGFR 128.6 > 60 55, 61 Surgical Pathology 11/02/2010 Surgical Pathology <SEE 62 NOTE> Laboratory test 07/31/2010 Herpes Culture With Herpes simplex v <SEE 63 finding Typing NOTE> Urine Culture No significant g <SEE NOTE> 64 Ua - Micro (Fma) 07/31/2010 Appearance clear Color yellow Glucose, Urine (Fma/CMC/CTX) neg Bilirubin neg Ketones neg SP Grav 1.015 Blood trace PH 7.0 Protein ssa trace Urobil 0.2 Nitrite neg Leukocytes (Fma/CMC/Centrex) small Hyaline - /Lpf Granular - /Lpf WBC (Fma,Centrex) 8-10 RBC 1-3 Mucus (Fma/CBC/Centrex) - /Lpf Epith occass /Lpf Bacteria trace /Hpf Amorphous (Fma/CMC/Centrex) - /Lpf Crystals, Fluid (Fma/CMC/CTX) - Z#Comments - Type And Screen 10/02/2009 Patient Blood Type O POSITIVE Antibody Screen NEGATIVE Specimen Discard Date 10.16.09 65 CBC With Electronic Diff 09/24/2009 White Blood Count 7.8 CUMM 4.8-10.8 Red Cell Count 4.87 CUMM 4.2-5.4 Hemoglobin 14.3 g/dL 12.0-16.0 Hematocrit 43 % 35-47 Mean Corpuscular Volume 88 um3 79-97 Mean Corpuscular Hemoglob 29 pg 27-31 Mean Corpuscular HGB Cone 33 g/dL 32-36 Redcell Distribution WDTH 13 % 10.5-15 Platelet Count 272 CUMM 150-450 Mean Platelet Volume 7.5 um3 7.4-10.4 Gran % 76.9 % 38-83 Lymph % 16.9 % Low 25-47 Mononuclear % 5.5 % 1-9 Eosinophil % 0.6 % 0-6 Basophil % 0.1 % 0-2 Abs Lymphs 1.3 1.0-4.8 Abs Mononuclear 0.4 0-0.8 Absolute Neutrophil Count 6.0 1.5-7.7 Abs Eosinophils 0 0-0.6 Abs Basophils 0 0-0.2 66 Comp Metabolic Panel 09/24/2009 Sodium 139 mmol/L 135-145 Potassium 4.6 mmol/L 3.5-5.0 Chloride 104 mmol/L 101-111 Co2 (Carbon Dioxide) 27.0 mmol/L 22-32 Anion Gap 8.0 mmol/L 2-11 67 Glucose 112 mg/dL High 70-100 68 BUN 13 mg/dL 6-24 Creatinine 0.70 mg/dL 0.50-1.40 One Over Creatinine 1.40 BUN/Creatinine Ratio 18.6 8-20 Calcium 9.5 mg/dL 8.1-9.9 69 Total Protein 6.3 GM/DL 6.2-8.1 Albumin 4.2 GM/DL 3.2-5.2 Globulin 2.1 GM/DL 2-4 Albumin/Globulin Ratio 2.0 1-3 Bilirubin Total 1.2 mg/dL 0.4-1.5 70 Alkaline Phosphatase 92 U/L 30-110 Alt (SGPT) 25 U/L 14-54 Ast (Sgot) 32 U/L 12-42 eGFR Non- 89.5 > 60 eGFR 108.3 > 60 71 Laboratory test 09/24/2009 Carcino Embryonic 0.59 NG/ML 0-5 72 finding Antigen Laboratory test 03/30/2007 [facility] CMP;MAG;TROP;TS See Image finding H; Report CBC With Electronic 03/30/2007 White Blood Count 6.3 CUMM 4.8-10.8 Diff Stat Abs Basophils 0 0-0.2 Abs Eosinophils 0.1 0-0.6 Absolute Neutrophil Count 4.4 1.5-7.7 Abs Lymphs 1.4 1.0-4.8 Abs Mononuclear 0.4 0-0.8 Basophil % 0.4 % 0-2 Hematocrit 40 % 35-47 Hemoglobin 14.0 g/dL 12.0-16.0 Eosinophil % 1.8 % 0-6 Gran % 69.5 % 38-83 Lymph % 21.9 % 20-45 Mean Corpuscular HGB Cone 35 g/dL 32-36 Mean Corpuscular Hemoglob 30 pg 27-31 Mean Corpuscular Volume 85 um3 79-97 Mean Platelet Volume 8.0 um3 7.4-10.4 Mononuclear % 6.4 % 1-9 Platelet Count 259 CUMM 150-450 Red Cell Count 4.70 CUMM 4.2-5.4 Redcell Distribution WDTH 13 % 10.5-15 Ua - Non Micro ([facility]) 02/25/2006 Appearance CLEAR Color LT YELLOW Glucose NEG Bilirubin NEG Ketones NEG SP Grav <=1.005 Blood NEG PH 5.0 Protein NEG Urobil 0.2 Nitrite NEG Leukocytes NEG Comp Metabolic (a) 09/24/2005 Glucose, Serum (Fma/CMC/CTX) 105 mg/dL 70 -105 Female BUN (Fma/CMC/Centrex) 19 mg/dL 6-26 Creatinine, Serum 0.8 mg/dL 0.6-1.4 BUN/Creatinin Ratio 23.2 8.0-36 Sodium 144 134-149 Potassium 3.8 3.6-5.5 Chloride 107 mEq/L 94-112 Co2 29 21-32 Calcium (a/CMC/Centrex) 9.5 mg/dL 8.6-10.2 Total Protein 6.8 g/dL 6.3-8.1 Albumin ([facility]/CMCC/Centrex) 4.2 3.8-5.5 Globulin 2.7 2.0-4.8 A/G Ratio (A/G Ratio) 1.6 0.6-2.2 Alkaline Phosphatase (F/C/CTX) 104 U/L 30-110 Alt (Sgot) Female (Fma,CX,CMC) 22 7-35 Ast Sgot 24 U/L 5-34 Bilirubin, Total 1.0 mg/dL 0.2-1.3 Lipid Profile ([facility]) Female 09/24/2005 Cholesterol 208 mg/dL High 120-200 Triglyceride 76 mg/dL 30-200 HDL-Chol 47 mg/dL 30-85 LDL, Calculated (a/CMC) 146 CALC High 0-129 LDL Direct (/[facility]/Centrex) - mg/dL 0-130 VLDL 15 0-50 HDL Risk Factor ([facility]) 4.5 CALC 4.2-7.0 Laboratory test finding 12/15/2004 Flu A&B NEGATIVE Negative 1 SEE RESULT BELOW Name: DANIELLE SALDIVAR : [address]: Ramiro Francois MD Acct: [id number] Unit: [id number] AGE: 71 Location: ENDO Re01/18/17 SEX: F Status: DEP REF SPEC: [id number] NIKI: 01/18/17- SUBM DR: Ramiro Francois MD REQ: [id number] RECD: 01/18/17 STATUS: CELY WORKMAN DR: Toby Isabel MD _ ORDERED: LEVEL IV/2 FINAL DIAGNOSIS 1. Colon, descending, biopsy: -- Hyperplastic polyp. 2. Colon, proximal sigmoid, biopsy: -- Hyperplastic polyp. CLINICAL HISTORY Usual bowel habit - 1-3 times in AM with no blood POST-OPERATIVE DIAGNOSIS Colonoscopy to anastomosis with ease, wide open - 2 nodules. Conclusions/Plan : Status post right cuca, 2 nodules; follow-up 3 years GROSS DESCRIPTION 1. The specimen is received in formalin labeled, Biopsy Descending Colon Polyp, and consists of three nicole-brown irregular to polypoid soft tissue fragments measuring 0.5 x 0.3 x 0.1 cm, 0.6 x 0.2 x 0.1 cm and 1.0 x 0.2 x 0.2 cm, which are entirely submitted in one cassette. 2. The specimen is received in formalin labeled, Biopsy Proximal Sigmoid Polyp, and consists of a 0.5 x 0.3 x 0.3 cm speckled nicole-pink irregular to polypoid soft tissue fragment, which is entirely submitted in one cassette. Signed (signature on file) Toni Manuel MD 1330 END OF REPORT * ML=Testing performed at Main Lab DEPARTMENT OF PATHOLOGY, [address] [place] [address] Toni Manuel M.D. Director [facility] # [id number] 2 [facility] Severe Sepsis and Septic Shock Management Bundle Measure requires all lactic acids initially measuring >2.0 mmol/L be repeated. 3 Because ethnic data is not always readily available, this report includes an eGFR for both -Americans and non- Americans. The National Kidney Disease Education Program (NKDEP) does not endorse the use of the MDRD equation for patients that are not between the ages of 18 and 70, are , have extremes of body size, muscle mass, or nutritional status, or are non- or non-. According to the National Kidney Foundation, irrespective of diagnosis, the stage of the disease is based on the level of kidney function: Stage Description GFR(mL/min/1.73 m(2)) 1 Kidney damage with normal or decreased GFR 90 2 Kidney damage with mild decrease in GFR 60-89 3 Moderate decrease in GFR 30-59 4 Severe decrease in GFR 15-29 5 Kidney failure <15 (or dialysis) 4 Reference Range and Interpretation: TnI (ng/mL) Interpretation Less Than 0.03 ng/mL Not supportive of diagnosis of MT 0.03 - 0.50 ng/mL Indeterminate: suggest serial studies if clinically indicated. Greater than 0.5 ng/mL Consistent with diagnosis of MT 5 not enough sample to do a micro 6 SEE RESULT BELOW Name: DANIELLE SALDIVAR : [address]: Jason Tapia MD Acct: [id number] Unit: [id number] AGE: 69 Location: ED Re04/26/15 SEX: F Status: DEP ER SPEC: [id number] NIKI: 04/26/15-[address] [facility] [address]: Gail LEMON REQ: [id number] RECD: 04/26/15702 STATUS: SUSANA WORKMAN DR: Toby Tapia MD _ SOURCE: URINE SPDESC: ORDERED: Urine Culture Procedure Result Verified Site Urine Culture Final 04/28/15- 925 ML Organism 1 STREP GROUP B [place] Count 1-10,000 (Few) CFU/ML Susceptibility testing of penicillins and other B-lactams approved by FDA for treatment of Streptococcus pyogenes (Group A Strep) and Streptococcus agalactiae (Group B Strep) is not necessary for clinical purposes and need not be done routinely, since as with vancomycin, resistant strains have not been recognized. (CLSI [id number];p.66) Positive isolates will be saved for one week. Please call the Microbiology Laboratory if further susceptibility testing is needed. * ML - MAIN LAB ([facility]) . END OF REPORT * ML=Testing performed at Main Lab DEPARTMENT OF PATHOLOGY, [address] [place] [address] Toni Manuel M.D. Director [facility] # [id number] 7 Acute inflammation: >10.00 8 Because ethnic data is not always readily available, this report includes an eGFR for both -Americans and non- Americans. The National Kidney Disease Education Program (NKDEP) does not endorse the use of the MDRD equation for patients that are not between the ages of 18 and 70, are , have extremes of body size, muscle mass, or nutritional status, or are non- or non-. According to the National Kidney Foundation, irrespective of diagnosis, the stage of the disease is based on the level of kidney function: Stage Description GFR(mL/min/1.73 m(2)) 1 Kidney damage with normal or decreased GFR 90 2 Kidney damage with mild decrease in GFR 60-89 3 Moderate decrease in GFR 30-59 4 Severe decrease in GFR 15-29 5 Kidney failure <15 (or dialysis) 9 NON-FASTING 10 results rechecked 11 Reference Range and Interpretation: TnI (ng/mL) Interpretation Less Than 0.03 ng/mL Not supportive of diagnosis of MT 0.03 - 0.50 ng/mL Indeterminate: suggest serial studies if clinically indicated. Greater than 0.5 ng/mL Consistent with diagnosis of MT 12 Because ethnic data is not always readily available, this report includes an eGFR for both -Americans and non- Americans. The National Kidney Disease Education Program (NKDEP) does not endorse the use of the MDRD equation for patients that are not between the ages of 18 and 70, are , have extremes of body size, muscle mass, or nutritional status, or are non- or non-. According to the National Kidney Foundation, irrespective of diagnosis, the stage of the disease is based on the level of kidney function: Stage Description GFR(mL/min/1.73 m(2)) 1 Kidney damage with normal or decreased GFR 90 2 Kidney damage with mild decrease in GFR 60-89 3 Moderate decrease in GFR 30-59 4 Severe decrease in GFR 15-29 5 Kidney failure <15 (or dialysis) 13 Reference Range and Interpretation: TnI (ng/mL) Interpretation Less Than 0.03 ng/mL Not supportive of diagnosis of MT 0.03 - 0.50 ng/mL Indeterminate: suggest serial studies if clinically indicated. Greater than 0.5 ng/mL Consistent with diagnosis of MT 14 RESULTS VERIFIED BY REPEAT ANALYSIS 15 Potassium reference range changed effective 08/25/14 16 Because ethnic data is not always readily available, this report includes an eGFR for both -Americans and non- Americans. The National Kidney Disease Education Program (NKDEP) does not endorse the use of the MDRD equation for patients that are not between the ages of 18 and 70, are , have extremes of body size, muscle mass, or nutritional status, or are non- or non-. According to the National Kidney Foundation, irrespective of diagnosis, the stage of the disease is based on the level of kidney function: Stage Description GFR(mL/min/1.73 m(2)) 1 Kidney damage with normal or decreased GFR 90 2 Kidney damage with mild decrease in GFR 60-89 3 Moderate decrease in GFR 30-59 4 Severe decrease in GFR 15-29 5 Kidney failure <15 (or dialysis) 17 Reference Range and Interpretation: TnI (ng/mL) Interpretation Less Than 0.03 ng/mL Not supportive of diagnosis of MT 0.03 - 0.50 ng/mL Indeterminate: suggest serial studies if clinically indicated. Greater than 0.5 ng/mL Consistent with diagnosis of MT 18 Verbal to [id number] by [id number] at 0002 on 09/10/14. Results read back accurately. Please note: The following may produce a false positive D Dimer test: - Rheumatoid factor greater than 60 IU/ml - Plasma hemoglobin greater than 0.05 gm/dl - Bilirubin greater than 50 mg/dl - Lipids greater than 1000 mg/dl - FDP greater than 20 ug/ml 19 Potassium reference range changed effective 08/25/14 20 Because ethnic data is not always readily available, this report includes an eGFR for both -Americans and non- Americans. The National Kidney Disease Education Program (NKDEP) does not endorse the use of the MDRD equation for patients that are not between the ages of 18 and 70, are , have extremes of body size, muscle mass, or nutritional status, or are non- or non-. According to the National Kidney Foundation, irrespective of diagnosis, the stage of the disease is based on the level of kidney function: Stage Description GFR(mL/min/1.73 m(2)) 1 Kidney damage with normal or decreased GFR 90 2 Kidney damage with mild decrease in GFR 60-89 3 Moderate decrease in GFR 30-59 4 Severe decrease in GFR 15-29 5 Kidney failure <15 (or dialysis) 21 Reference Range and Interpretation: TnI (ng/mL) Interpretation Less Than 0.03 ng/mL Not supportive of diagnosis of MT 0.03 - 0.50 ng/mL Indeterminate: suggest serial studies if clinically indicated. Greater than 0.5 ng/mL Consistent with diagnosis of MT 22 Because ethnic data is not always readily available, this report includes an eGFR for both -Americans and non- Americans. The National Kidney Disease Education Program (NKDEP) does not endorse the use of the MDRD equation for patients that are not between the ages of 18 and 70, are , have extremes of body size, muscle mass, or nutritional status, or are non- or non-. According to the National Kidney Foundation, irrespective of diagnosis, the stage of the disease is based on the level of kidney function: Stage Description GFR(mL/min/1.73 m(2)) 1 Kidney damage with normal or decreased GFR 90 2 Kidney damage with mild decrease in GFR 60-89 3 Moderate decrease in GFR 30-59 4 Severe decrease in GFR 15-29 5 Kidney failure <15 (or dialysis) 23 Reference Range and Interpretation: TnI (ng/mL) Interpretation Less Than 0.03 ng/mL Not supportive of diagnosis of MT 0.03 - 0.50 ng/mL Indeterminate: suggest serial studies if clinically indicated. Greater than 0.5 ng/mL Consistent with diagnosis of MT 24 Acute inflammation: >10.00 25 RUN DATE: 05/29/14 [facility] LAB LIVE PAGE 1 RUN TIME: 10[address] [place], [place] [address] Specimen Inquiry Name: DANIELLE SALDIVAR : [address]: Maikol Rocha DO Acct: [id number] Unit: [id number] AGE: 68 Location: ED Re05/27/14 SEX: F Status: DEP ER SPEC: [id number] NIKI: 05/27/[address] [facility] [address]: Maikol Rocha DO REQ: [id number] RECD: 05/27/14 STATUS: SUSANA WORKMAN DR: Toby Isabel MD _ SOURCE: URINE SPDESC: ORDERED: Urine Culture Procedure Result Verified Site Urine Culture Final 05/29/14- 1020 ML Organism 1 NORMAL DORIAN [place] Count 10-25,000 (Moderate) CFU/ML END OF REPORT * ML=Testing performed at Main Lab DEPARTMENT OF PATHOLOGY, [facility] [employer] [place], [place] [address] Toni Manuel M.D. Director [facility] # [id number] RUN DATE: 11/30/12 [facility] LAB LIVE PAGE 1 RUN TIME: 836 [facility] [employer] [place], [place] [address] Specimen Inquiry Name: DANIELLE SALDIVAR : [address]: John Covarrubias MD Acct: [id number] Unit: [id number] AGE: 67 Location: [facility] Re11/24/12 SEX: F Status: REG REF SPEC: [id number] NIKI: 11/24/12-[address]: John Covarrubias MD REQ: [id number] RECD: 11/27/12 STATUS: CELY WORKMAN DR: Toby Isabel MD _ ORDERED: IMAGE ANALYSIS, PAP SM PATH REV, HPV / Thin Prep HiRisk Human Papilloma Virus test results received with preparation and diagnosis completed by [facility], [place], [place]. Results: NEGATIVE High Risk (for types 16, 18, 31, 33, 35, 39, 45, 51, 52, 56, 58, 59, 68) [employer] Hybrid Capture Specimen Transport Media or [employer] ThinPrep PapTest PreservCyt Solution are the collection systems approved for use with this method by the U.S. Food and Drug Administration. Performance characteristics for [employer] (SurPath) collection device have been determined by Laboratory Medicine and Pathology , [facility], [place], [place]. It has not been cleared or approved by the U.S. Food and Drug Administration. Test Performed by: [facility] Dpt of lab Med and Pathology [address] [place] [id number] City Detective: Venu Goff III, M.D. Original hard copy report from [facility] [employer] is available upon request by calling Pathology at [phone]. Addendum Signed (signature on file) JUAN Hicks ([facility]) 11/30/12 0837 FINAL DIAGNOSIS EPITHELIAL CELL ABNORMALITIES Atypical squamous cells of undetermined significance COMMENTS: Specimen sent to [facility] in [place], [place] on 11/27/12. Results will be reported separately in an Addendum. A. Ectocervical/Endocervical CONTINUED ON NEXT PAGE * ML=Testing performed at Main Lab DEPARTMENT OF PATHOLOGY, [facility] [employer] [place], [place] [address] Toni Manuel M.D. Director [facility] Permit #[id number] RUN DATE: 11/30/12 [facility] LAB LIVE PAGE 2 RUN TIME: 08 [facility] [employer] [place], [place] [address] Specimen Inquiry Patient: DANIELLE SALDIVAR [id number] (Continued) CYTOLOGY ADEQ (Continued) Specimen Adequacy: Satisfactory of evaluation Transformation zone component identified Patient Information: HPV: High risk HPV DNA testing regardless of pap results. Actual Specimen Date: 11/24/12 Cautery: N IUD: N Lesion, grossly demonstrate: N Radiation Y/N? N ?: N Post Menopausal?: Y Hysterectomy?: N Previous Abnormal Pap Smears?:Y If Yes, enter Diagnosis: 09/2011 Atypical Squamous cells of uncertain significance. Other Pertinent History: Atrophic cervix Signed (signature on file) Toni Manuel MD 1552 This Pap test was evaluated with the assistance of the [employer] ServicePrep Test Imaging System. Due to cytologic findings at the enrollment manager microscope, comprehensive manual rescreening by a Shellfish Grower may be required. The Pap Smear is a screening test designed to aid in the detection of premalignant and malignant conditions of the uterine cervix. It is not a diagnostic procedure and should not be used as the sole means of detecting cervical cancer. Both false- positive and false- negative reports do occur. Depending on your risk status, a Pap smear shoudl be obtained and evaluated every 1-3 years. END OF REPORT * ML=Testing performed at Main Lab DEPARTMENT OF PATHOLOGY, [address] [place] [address] Toni Manuel M.D. Director [facility] Permit #[id number] 27 For types 16, 18, 31, 33, 35, 39, 45, 51, 52, 56, 58, 59 and 68. Test Performed by: [address] [address] City Detective: Venu Goff III, M.D. 28 Nonimmune <0.91 Equivocal 0.91 - 1.09 Immune >1.09 29 SPLIT SPECIMEN; 1 SST; 1 LAV 5 FROZEN POURED OFF CITRATED PLASMA 30 Result: Negative (no mutation found) . Factor V Leiden is a specific mutation (R506Q) in the factor V gene that is associated with an increased risk of venous thrombosis. Factor V Leiden is more resistant to inactivation by activated protein C. As a result, factor V persists in the circulation leading to a mild hyper- coagulable state. The Leiden mutation accounts for 90% - 95% of APC resistance. Factor V Leiden has been reported in patients with deep vein thrombosis, pulmonary embolus, central retinal vein occlusion, cerebral sinus thrombosis and hepatic vein thrombosis. Other risk factors to be considered in the workup for venous thrombosis include the [id number] mutation in the factor II (prothrombin) gene, protein S and C deficiency, and antithrombin deficiencies. Anticardiolipin antibody and lupus anticoagulant analysis may be appropriate for certain patients, as well as homocysteine levels. . Contact your local [facility] for information on how to order additional testing if desired. . 31 Genetic counselors are available for health care providers to discuss results at [phone] ([phone]). . Methodology: DNA analysis of the Factor V gene was performed by allele- specific PCR followed by gel electrophoresis. The diagnostic sensitivity and specificity is >99% for both. Molecular- based testing is highly accurate, but as in any laboratory test, diagnostic errors may occur. All test results must be combined with clinical information for the most accurate interpretation. . References: Monica Santiago (1996). Clin Lab Med 16:169-186. . Gustavo Mathis, Ph.D. Alexandria Koenig, Ph.D. Stephanie Mendiola, Ph.D. Yesy Piña, Ph.D. Manuela Graves, Ph.D. Marlene Guadarrama M.D. Doreen Rodriguez, Ph.D. . 32 Negative: <15 Indeterminate: 15 - 20 Low-Med Positive: >20 - 80 High Positive: >80 33 Negative: <13 Indeterminate: 13 - 20 Low-Med Positive: >20 - 80 High Positive: >80 34 Negative: <12 Indeterminate: 12 - 20 Low-Med Positive: >20 - 80 High Positive: >80 35 ---- RUN DATE: 10/12/11 [facility] NMI LIVE PAGE 1 RUN TIME: 1545 Specimen Inquiry RUN USER: INTERFACE -- Name: DANIELLE SALDIVAR Status: REG REF Re10/08/11 Age/Sex: 65/F Unit#: [id number] Location: [facility]. : [birth year] -- Specimen: [id number] SOUT Spec Date: 10/08/[address]: Ramiro whatley MD Spec Type: SURGICAL P Received: 10/11/11 Copies to: Toby Isabel MD SPECIMEN COLON BIOPSY AT 35 CM. HISTORY POST-OP DIAGNOSIS: Minimal sigmoid diveriticulosis; polyp - minimal, chivo rafaela CLINICAL INFORMATION: Abdominal pain; history of colorectal carcinoma GROSS DESCRIPTION The specimen is received in formalin labelled Tulioaria Mariposa, Colon Biopsy at 35 cm., and consists of multiple nicole, soft tissue fragments measuring 0.4 x 0.2 x 0.1 cm. Submitted entirely, one cassette. DIAGNOSIS Colon, 35 cm., biopsy: A. Tubular adenoma. B. No high grade dysplasia or malignancy. Signed Electronically by: TONI MANUEL MD 10/12/11 1543 -- -- DEPARTMENT OF PATHOLOGY, [address] [place] [address] [facility] Permit #[id number] Toni Manuel M.D. Director Marky Vaughn M.D. Pain Management Nurse Dir skylar -- 36 Anion gap measurement may be of limited value in the presence of any alkalosis, especially in a combined acid base disorder. . 37 A metabolite of Naproxen, O-desmethylnaproxen, has been shown to interfere with the Jendrassik-Li method for measuring total bilirubin. Samples from patients who have taken Naproxen have shown spurious elevation in total bilirubin levels. 38 Because ethnic data is not always readily available, this report includes an eGFR for both -Americans and non- Americans. The National Kidney Disease Education Program (NKDEP) does not endorse the use of the MDRD equation for patients that are not between the ages of 18 and 70, are , have extremes of body size, muscle mass, or nutritional status, or are non- or non-. According to the National Kidney Foundation, irrespective of diagnosis, the stage of the disease is based on the level of kidney function: Stage Description GFR(mL/min/1.73 m(2)) 1 Kidney damage with normal or decreased GFR 90 2 Kidney damage with mild decrease in GFR 60-89 3 Moderate decrease in GFR 30-59 4 Severe decrease in GFR 15-29 5 Kidney failure <15 (or dialysis) 39 Recommended INR for Patients on Oral Anticoagulants Prophylaxis 2.0 - 3.0 Treatment of thrombosis 2.0 - 3.0 Prevention of embolism 2.0 - 3.0 Prevention of embolism from prosthetic heart valves 2.5 - 3.5 40 DIAGNOSIS,TREATMENT,AND THERAPY MUST BE BASED ON THE INR VALUE ALONE. 41 SMOKING MAY INCREASE VALUES SERUM LEVELS OF CEA MEASURED USING THE [facility] ACCESS IMMUNOASSAY SYSTEM SHOULD NOT BE INTERPRETED ABSOLUTE EVIDENCE OF THE PRESENCE OR ABSENCE OF DISEASE. THE CEA VALUE SHOULD BE USED IN CONJUNCTION WITH OTHER PERTINENT CLINICAL DIAGNOSTIC PROCEDURES. 42 Anion gap measurement may be of limited value in the presence of any alkalosis, especially in a combined acid base disorder. . 43 A metabolite of Naproxen, O-desmethylnaproxen, has been shown to interfere with the Jendrassik-Li method for measuring total bilirubin. Samples from patients who have taken Naproxen have shown spurious elevation in total bilirubin levels. 44 Because ethnic data is not always readily available, this report includes an eGFR for both -Americans and non- Americans. The National Kidney Disease Education Program (NKDEP) does not endorse the use of the MDRD equation for patients that are not between the ages of 18 and 70, are , have extremes of body size, muscle mass, or nutritional status, or are non- or non-. According to the National Kidney Foundation, irrespective of diagnosis, the stage of the disease is based on the level of kidney function: Stage Description GFR(mL/min/1.73 m(2)) 1 Kidney damage with normal or decreased GFR 90 2 Kidney damage with mild decrease in GFR 60-89 3 Moderate decrease in GFR 30-59 4 Severe decrease in GFR 15-29 5 Kidney failure <15 (or dialysis) 45 Recommended INR for Patients on Oral Anticoagulants Prophylaxis 2.0 - 3.0 Treatment of thrombosis 2.0 - 3.0 Prevention of embolism 2.0 - 3.0 Prevention of embolism from prosthetic heart valves 2.5 - 3.5 46 DIAGNOSIS,TREATMENT,AND THERAPY MUST BE BASED ON THE INR VALUE ALONE. 47 1 SST 48 RESULT KEYUR'Armond 49 Anion gap measurement may be of limited value in the presence of any alkalosis, especially in a combined acid base disorder. . 50 A metabolite of Naproxen, O-desmethylnaproxen, has been shown to interfere with the Jendrassik-[place] method for measuring total bilirubin. Samples from patients who have taken Naproxen have shown spurious elevation in total bilirubin levels. 51 Because ethnic data is not always readily available, this report includes an eGFR for both -Americans and non- Americans. The National Kidney Disease Education Program (NKDEP) does not endorse the use of the MDRD equation for patients that are not between the ages of 18 and 70, are , have extremes of body size, muscle mass, or nutritional status, or are non- or non-. According to the National Kidney Foundation, irrespective of diagnosis, the stage of the disease is based on the level of kidney function: Stage Description GFR(mL/min/1.73 m(2)) 1 Kidney damage with normal or decreased GFR 90 2 Kidney damage with mild decrease in GFR 60-89 3 Moderate decrease in GFR 30-59 4 Severe decrease in GFR 15-29 5 Kidney failure <15 (or dialysis) 52 Neutrophilia % Lymphopenia % 53 FINAL: NO GROWTH DAY 2 (<1,000 CFU/mL) 54 RESULT KEYUR'D 55 AA 04/19/11 56 Recommended INR for Patients on Oral Anticoagulants Prophylaxis 2.0 - 3.0 Treatment of thrombosis 2.0 - 3.0 Prevention of embolism 2.0 - 3.0 Prevention of embolism from prosthetic heart valves 2.5 - 3.5 57 DIAGNOSIS,TREATMENT,AND THERAPY MUST BE BASED ON THE INR VALUE ALONE. 58 PREADMISSION TESTING SAMPLES FOR BLOOD BANK WILL BE HELD FOR 14 DAYS FROM THE DATE OF COLLECTION *IF* THE FOLLOWING CRITERIA ARE MET: 1) THE PATIENT HAS *NOT* BEEN IN THE LAST 3 MONTHS. 2) THE PATIENT HAS *NOT* BEEN TRANSFUSED IN THE LAST 3 MONTHS. PREADMISSION TESTING SAMPLES WILL *NOT* BE HELD FOR 14 DAYS FROM PATIENTS WHO IN THE LAST 3 MONTHS: 1) HAVE BEEN 2) HAVE BEEN TRANSFUSED THESE PATIENTS *MUST* BE COLLECTED WITHIN 3 DAYS OF THE SURGERY DATE. 59 Anion gap measurement may be of limited value in the presence of any alkalosis, especially in a combined acid base disorder. . 60 A metabolite of Naproxen, O-desmethylnaproxen, has been shown to interfere with the Jendrassik-[place] method for measuring total bilirubin. Samples from patients who have taken Naproxen have shown spurious elevation in total bilirubin levels. 61 Because ethnic data is not always readily available, this report includes an eGFR for both -Americans and non- Americans. The National Kidney Disease Education Program (NKDEP) does not endorse the use of the MDRD equation for patients that are not between the ages of 18 and 70, are , have extremes of body size, muscle mass, or nutritional status, or are non- or non-. According to the National Kidney Foundation, irrespective of diagnosis, the stage of the disease is based on the level of kidney function: Stage Description GFR(mL/min/1.73 m(2)) 1 Kidney damage with normal or decreased GFR 90 2 Kidney damage with mild decrease in GFR 60-89 3 Moderate decrease in GFR 30-59 4 Severe decrease in GFR 15-29 5 Kidney failure <15 (or dialysis) 62 ---- RUN DATE: 11/04/10 [facility] NMI LIVE PAGE 1 RUN TIME: 1417 Specimen Inquiry RUN USER: INTERFACE -- Name: HALEY SALDIVAR Status: REG REF Re11/02/10 Age/Sex: 65/F Unit#: [id number] Location: [address] [place] [address]. : [birth year] -- Specimen: [id number] [facility] Spec Date: 11/02/[address]: Ramiro whatley MD Spec Type: SURGICAL P Received: 11/03/10 Copies to: Toby Isabel MD SPECIMEN 1) BIOPSY COLONIC ANASTOMOSIS 2) BIOPSY ANASTOMOTIC THICKENING HISTORY POST-OP DIAGNOSIS: Status post right cuca. CLINICAL INFORMATION: History of colon carcinoma. No symptoms. Seasonal a llergies. GROSS DESCRIPTION 1) The specimen is received in formalin labelled Haley Saldivar, Colonic Anastomosis Biopsy, and consists of two fragments of yellow tissue measuring in aggregate 0.4 x 0.4 x 0.3 cm. Submitted entirely, one cassette labelled 1. 2) The specimen is received in formalin labelled Haley Saldivar, Anastomotic Thickening Biopsy, and consists of four fragments of yellow tissue each measuring 0.2 x 0.2 x 0.2 cm. Submitted entirely, one cassette labelled 2. DIAGNOSIS 1) Colonic anastomosis, biopsy: A. Fragments of small bowel mucosa with prominent lymphoid aggregates. B. No evidence of malignancy. 2) Anastomotic thickening, biopsy: A. Fragments of small bowel mucosa with prominent lymphoid aggregates. B. No evidence of malignancy. Signed Electronically by: MARKY VAUGHN 11/04/10 1417 -- -- DEPARTMENT OF PATHOLOGY, [address] [place] [address] [facility] Permit #[id number] Toni Manuel M.D. Director Marky Vaughn M.D. Pain Management Nurse Dir skylar -- 63 Herpes simplex virus Type I HERPES CULTURE WITH TYPING organism 1 Herpes simplex virus Type I 64 No significant growth. 65 PREADMISSION TESTING SAMPLES FOR BLOOD BANK WILL BE HELD FOR 14 DAYS FROM THE DATE OF COLLECTION *IF* THE FOLLOWING CRITERIA ARE MET: 1) THE PATIENT HAS *NOT* BEEN IN THE LAST 3 MONTHS. 2) THE PATIENT HAS *NOT* BEEN TRANSFUSED IN THE LAST 3 MONTHS. PREADMISSION TESTING SAMPLES WILL *NOT* BE HELD FOR 14 DAYS FROM PATIENTS WHO IN THE LAST 3 MONTHS: 1) HAVE BEEN 2) HAVE BEEN TRANSFUSED THESE PATIENTS *MUST* BE COLLECTED WITHIN 3 DAYS OF THE SURGERY DATE. 66 Lymphopenia % 67 Anion gap measurement may be of limited value in the presence of any alkalosis, especially in a combined acid base disorder. . 68 Note change in reference range as of 06/13/08. The change was based on recommendations from the [employer]. 69 Please note change in reference range effective 08 . 70 A metabolite of Naproxen, O-desmethylnaproxen, has been shown to interfere with the Jendrassik-Li method for measuring total bilirubin. Samples from patients who have taken Naproxen have shown spurious elevation in total bilirubin levels. 71 Because ethnic data is not always readily available, this report includes an eGFR for both -Americans and non- Americans. The National Kidney Disease Education Program (NKDEP) does not endorse the use of the MDRD equation for patients that are not between the ages of 18 and 70, are , have extremes of body size, muscle mass, or nutritional status, or are non- or non-. According to the National Kidney Foundation, irrespective of diagnosis, the stage of the disease is based on the level of kidney function: Stage Description GFR(mL/min/1.73 m(2)) 1 Kidney damage with normal or decreased GFR 90 2 Kidney damage with mild decrease in GFR 60-89 3 Moderate decrease in GFR 30-59 4 Severe decrease in GFR 15-29 5 Kidney failure <15 (or dialysis) 72 SMOKING MAY INCREASE VALUES SERUM LEVELS OF CEA MEASURED USING THE [facility] ACCESS IMMUNOASSAY SYSTEM SHOULD NOT BE INTERPRETED ABSOLUTE EVIDENCE OF THE PRESENCE OR ABSENCE OF DISEASE. THE CEA VALUE SHOULD BE USED IN CONJUNCTION WITH OTHER PERTINENT CLINICAL DIAGNOSTIC PROCEDURES. Procedures Date CPT Code Description Status 09/07/2018 39723 Finger Or Heel Stick Completed 08/24/2018 48566 Finger Or Heel Stick Completed 07/27/2018 52356 Finger Or Heel Stick Completed 07/06/2018 76267 Finger Or Heel Stick Completed 06/29/2018 99595 Finger Or Heel Stick Completed 06/21/2018 Mammogram Completed 06/08/2018 65724 Finger Or Heel Stick Completed 05/25/2018 32659 Finger Or Heel Stick Completed 04/20/2018 18509 Finger Or Heel Stick Completed 03/16/2018 47562 Finger Or Heel Stick Completed 03/01/2018 38698 Finger Or Heel Stick Completed 02/03/2018 93095 Finger Or Heel Stick Completed 01/06/2018 86893 Finger Or Heel Stick Completed 12/09/2017 54170 Finger Or Heel Stick Completed 12/02/2017 97885 Finger Or Heel Stick Completed 10/28/2017 39615 Finger Or Heel Stick Completed 09/30/2017 62753 Finger Or Heel Stick Completed 08/19/2017 70578 Finger Or Heel Stick Completed 07/22/2017 77571 Finger Or Heel Stick Completed 06/17/2017 28142 Finger Or Heel Stick Completed 06/03/2017 52301 Finger Or Heel Stick Completed 05/30/2017 Mammogram Completed 05/20/2017 84540 Finger Or Heel Stick Completed 04/22/2017 10786 Finger Or Heel Stick Completed 03/25/2017 18807 Finger Or Heel Stick Completed 03/11/2017 15947 Finger Or Heel Stick Completed 02/18/2017 77046 Finger Or Heel Stick Completed 01/28/2017 48102 Finger Or Heel Stick Completed 01/21/2017 01788 Finger Or Heel Stick Completed 01/13/2017 04588 Finger Or Heel Stick Completed 12/17/2016 93341 Finger Or Heel Stick Completed 12/10/2016 36873 Finger Or Heel Stick Completed 11/29/2016 37355 Finger Or Heel Stick Completed 11/15/2016 58148 Finger Or Heel Stick Completed 11/10/2016 67551 Finger Or Heel Stick Completed 11/05/2016 14627 Finger Or Heel Stick Completed 10/04/2016 05763 Finger Or Heel Stick Completed 09/14/2016 29730 Finger Or Heel Stick Completed 09/01/2016 00383 Finger Or Heel Stick Completed 08/25/2016 79867 Finger Or Heel Stick Completed 07/23/2016 61588 Finger Or Heel Stick Completed 07/02/2016 61122 Finger Or Heel Stick Completed 06/04/2016 39087 Finger Or Heel Stick Completed 05/28/2016 Mammogram Completed 05/14/2016 42999 Finger Or Heel Stick Completed 04/16/2016 98848 Finger Or Heel Stick Completed 04/09/2016 49223 Finger Or Heel Stick Completed 03/12/2016 54456 Finger Or Heel Stick Completed 02/20/2016 96224 Finger Or Heel Stick Completed 01/30/2016 53524 Finger Or Heel Stick Completed 01/16/2016 61973 Finger Or Heel Stick Completed 01/07/2016 21922 Finger Or Heel Stick Completed 12/24/2015 50878 Finger Or Heel Stick Completed 12/10/2015 44452 Finger Or Heel Stick Completed 12/01/2015 73169 Finger Or Heel Stick Completed 11/24/2015 88408 Finger Or Heel Stick Completed 11/17/2015 67869 Finger Or Heel Stick Completed 11/10/2015 49383 Finger Or Heel Stick Completed 11/04/2015 54989 Finger Or Heel Stick Completed 11/01/2015 92375 Finger Or Heel Stick Completed 2015 08511 Finger Or Heel Stick Completed 10/13/2015 50439 Finger Or Heel Stick Completed 10/03/2015 60444 Finger Or Heel Stick Completed 09/22/2015 84307 Finger Or Heel Stick Completed 09/12/2015 65747 Finger Or Heel Stick Completed 09/05/2015 47574 Finger Or Heel Stick Completed 08/22/2015 26467 Finger Or Heel Stick Completed 08/15/2015 17425 Finger Or Heel Stick Completed 08/06/2015 26399 Finger Or Heel Stick Completed 07/29/2015 14325 Finger Or Heel Stick Completed 07/22/2015 91402 Finger Or Heel Stick Completed 07/15/2015 77664 Finger Or Heel Stick Completed 07/11/2015 41182 Finger Or Heel Stick Completed 07/05/2015 81538 Finger Or Heel Stick Completed 07/02/2015 98458 Finger Or Heel Stick Completed 06/26/2015 85972 Finger Or Heel Stick Completed 06/20/2015 06160 Finger Or Heel Stick Completed 06/13/2015 06504 Finger Or Heel Stick Completed 06/06/2015 22641 Finger Or Heel Stick Completed 05/30/2015 70130 Finger Or Heel Stick Completed 05/23/2015 43532 Finger Or Heel Stick Completed 05/16/2015 93179 Finger Or Heel Stick Completed 05/13/2015 24386 Finger Or Heel Stick Completed 05/09/2015 73181 Finger Or Heel Stick Completed 05/06/2015 58692 Finger Or Heel Stick Completed 05/02/2015 53491 Finger Or Heel Stick Completed 04/28/2015 32744 Finger Or Heel Stick Completed 04/24/2015 68416 Finger Or Heel Stick Completed 04/15/2015 Mammogram Completed 04/10/2015 67742 Finger Or Heel Stick Completed 04/04/2015 25859 Vision Test- screening test of visual acuity, Completed quantitative, bila 04/03/2015 46524 Finger Or Heel Stick Completed 03/27/2015 67224 Finger Or Heel Stick Completed 03/13/2015 71376 Finger Or Heel Stick Completed 02/27/2015 20980 Pulse Oximetry Completed 02/27/2015 58705 Finger Or Heel Stick Completed 02/20/2015 58250 Finger Or Heel Stick Completed 02/13/2015 12368 Finger Or Heel Stick Completed 02/07/2015 60565 Finger Or Heel Stick Completed 01/31/2015 60126 Finger Or Heel Stick Completed 01/27/2015 89897 Finger Or Heel Stick Completed 01/20/2015 47503 Finger Or Heel Stick Completed 01/13/2015 11566 Finger Or Heel Stick Completed 01/06/2015 31257 Finger Or Heel Stick Completed 12/31/2014 14916 Finger Or Heel Stick Completed 12/27/2014 15082 Finger Or Heel Stick Completed 12/23/2014 11676 Finger Or Heel Stick Completed 12/20/2014 67994 Finger Or Heel Stick Completed 12/16/2014 58307 Finger Or Heel Stick Completed 12/13/2014 67156 Finger Or Heel Stick Completed 12/09/2014 28418 Finger Or Heel Stick Completed 12/06/2014 69500 Finger Or Heel Stick Completed 12/02/2014 91871 Finger Or Heel Stick Completed 11/29/2014 37160 Finger Or Heel Stick Completed 11/25/2014 84312 Finger Or Heel Stick Completed 11/22/2014 81124 Finger Or Heel Stick Completed 11/19/2014 52044 Finger Or Heel Stick Completed 11/15/2014 69106 Finger Or Heel Stick Completed 11/11/2014 71488 Finger Or Heel Stick Completed 11/08/2014 40048 Finger Or Heel Stick Completed 11/04/2014 68040 Finger Or Heel Stick Completed 11/01/2014 98220 Finger Or Heel Stick Completed 10/29/2014 89248 Finger Or Heel Stick Completed 10/25/2014 62760 Finger Or Heel Stick Completed 10/23/2014 61203 Finger Or Heel Stick Completed 10/21/2014 76372 Finger Or Heel Stick Completed 10/18/2014 61477 Finger Or Heel Stick Completed 10/11/2014 62313 Finger Or Heel Stick Completed 10/07/2014 84148 Finger Or Heel Stick Completed 10/04/2014 38238 Finger Or Heel Stick Completed 09/30/2014 50813 Finger Or Heel Stick Completed 09/27/2014 56718 Finger Or Heel Stick Completed 09/23/2014 25052 Finger Or Heel Stick Completed 09/20/2014 50036 Finger Or Heel Stick Completed 09/16/2014 47832 Finger Or Heel Stick Completed 10/23/2013 Colonoscopy Completed 12/08/2012 Mammogram Completed 06/07/2012 92353 Finger Or Heel Stick Completed 05/10/2012 58486 Finger Or Heel Stick Completed 04/28/2012 50815 Finger Or Heel Stick Completed 04/19/2012 68813 Finger Or Heel Stick Completed 03/21/2012 90513 Finger Or Heel Stick Completed 02/17/2012 27414 Finger Or Heel Stick Completed 01/20/2012 87356 Finger Or Heel Stick Completed 01/06/2012 70261 Finger Or Heel Stick Completed 12/23/2011 99134 Finger Or Heel Stick Completed 11/25/2011 64344 Finger Or Heel Stick Completed 11/04/2011 49442 Finger Or Heel Stick Completed 10/21/2011 68223 Finger Or Heel Stick Completed 10/14/2011 12648 Finger Or Heel Stick Completed 10/13/2011 Mammogram Completed 10/08/2011 Colonoscopy Completed 09/30/2011 09036 Finger Or Heel Stick Completed 09/15/2011 51391 Finger Or Heel Stick Completed 09/09/2011 06560 Finger Or Heel Stick Completed 08/26/2011 36804 Finger Or Heel Stick Completed 08/13/2011 22371 Finger Or Heel Stick Completed 08/09/2011 10618 Finger Or Heel Stick Completed 08/05/2011 13137 Finger Or Heel Stick Completed 08/02/2011 06785 Finger Or Heel Stick Completed 07/24/2011 69340 Finger Or Heel Stick Completed 07/21/2011 73254 Finger Or Heel Stick Completed 07/19/2011 60654 Finger Or Heel Stick Completed 07/17/2011 08731 Finger Or Heel Stick Completed 07/17/2011 04817 Electrocardiogram Complete Completed 07/17/2011 94811 Pulse Oximetry Completed 07/09/2011 60832 Finger Or Heel Stick Completed 07/05/2011 50506 Finger Or Heel Stick Completed 07/03/2011 01759 Finger Or Heel Stick Completed 06/26/2011 16606 Finger Or Heel Stick Completed 06/23/2011 11129 Finger Or Heel Stick Completed 06/21/2011 68551 Finger Or Heel Stick Completed 06/19/2011 97407 Finger Or Heel Stick Completed 06/16/2011 97632 Finger Or Heel Stick Completed 06/14/2011 93160 Finger Or Heel Stick Completed 05/24/2011 44224 Electrocardiogram Complete Completed 08/26/2010 Mammogram Completed 08/21/2009 Mammogram Completed 08/21/2007 77221 Pulse Oximetry Completed 07/14/2007 Mammogram Completed 08/22/2006 Colonoscopy Completed 03/11/2006 21292 Destruction-1 Beign Lesion Completed 07/06/2001 Bone Mineral Density Test Completed 01/21/1999 68740 Pure Tone Audiometry Completed Encounters Type Date Location Provider CPT E/M Dx Office Visit 06/17/2017 10:15a Main Office Toby Isabel M.D. 53160 J01.80 R42 J30.2 Office Visit 06/17/2017 10:10a Main Office Toby Isabel M.D. 52324 J01.80 R42 J30.2 Z79.01 I26.99 I82.401 Office Visit 03/08/2017 3:10p Main Office Toby Isabel M.D. 58698 J01.80 J30.2 R42 Office Visit 09/14/2016 7:10p Main Office Toby Isabel M.D. 37062 J01.80 J30.2 M25.561 R42 Office Visit 09/14/2016 10:00a [facility] Toby Isabel M.D. 04568 Z79.01 I26.99 I82.401 J01.80 J30.2 M25.561 R42 Office Visit 07/23/2016 3:00p [place] [address] J30.2 J06.9 Office Visit 05/11/2016 1:45p [facility] JAMES Che 97605 J34.89 R51 Office Visit 02/12/2016 12:00p Main Office Debbie Law M.D. 18156 J30.9 Office Visit 01/23/2016 4:00p [place] [address] S00.06xA W57.xxxA Office Visit 11/27/2015 2:40p [facility] Toby Isabel M.D. 81857 J01.80 R42 K29.00 Office Visit 11/13/2015 11:40a [facility] Toby Isabel M.D. 46585 J01.80 K29.00 R42 Office Visit 10/30/2015 3:15p [facility] Kristy Matthews 33739 S91.331A Y93.D1 K21.9 Y92.018 H81.10 Office Visit 07/02/2015 1:40p [facility] Debbie Law M.D. 53724 724.2 V58.61 415.19 453.40 Office Visit 04/28/2015 2:10p [facility] Debbie Law M.D. 08877 789.09 V58.61 415.19 Office Visit 02/27/2015 9:45a [facility] Toby Isabel M.D. 56193 V58.61 415.19 453.40 477.0 493.00 Office Visit 02/27/2015 10:20a [facility] Toby Isabel M.D. 36715 477.0 493.00 Office Visit 02/03/2015 10:45a Main Office StoddardchichiNav 08347 782.1 E906.4 Office Visit 01/24/2015 9:10a [facility] Darell Saab M.D. 39875 916.4 E906.4 Office Visit 01/06/2015 2:20p Main Office Toby Isabel M.D. 72053 300.00 453.40 564.1 V58.61 415.19 Office Visit 12/16/2014 2:30p Main Office Toby Isabel M.D. 20406 453.40 300.00 564.1 311 530.81 Office Visit 12/16/2014 2:20p Main Office Toby Isabel M.D. 08735 V58.61 453.40 300.00 564.1 311 530.81 Office Visit 11/25/2014 3:00p Main Office Toby Isabel M.D. 17698 V58.61 453.40 415.19 300.00 564.1 Office Visit 11/11/2014 1:20p Main Office Toby Isabel M.D. 83953 v58.61 453.40 415.19 300.00 Office Visit 11/01/2014 2:20p Main Office Toby Isabel M.D. 51335 V58.61 415.19 453.40 300.00 311 Office Visit 10/25/2014 4:40p Main Office Toby Isabel M.D. 12327 300.00 453.40 564.1 530.81 Office Visit 10/18/2014 2:00p [place] [address] 787.02 300.00 Office Visit 10/14/2014 3:15p Main Office Toby Isabel M.D. 24864 300.00 415.19 453.40 564.1 530.81 794.8 V58.61 Office Visit 10/14/2014 3:00p Main Office Toby Isabel M.D. 58700 300.00 415.19 453.40 564.1 530.81 794.8 V58.61 Office Visit 09/27/2014 1:30p [facility] Sonja JAMES Mcgregor 19027 381.81 462 465.0 Office Visit 09/23/2014 2:20p Main Office Toby Isabel M.D. 34616 453.40 415.19 V58.61 300.00 Office Visit 05/28/2014 8:10a Main Office Toby Isabel M.D. 55731 562.11 564.1 Office Visit 10/08/2013 2:10p Main Office Toby Isabel M.D. 21255 381.01 465.9 Office Visit 04/05/2013 2:00p [facility] Office Toby Isabel M.D. 78188 723.1 724.5 Office Visit 12/21/2012 2:00p [facility] Office Toby Isabel M.D. 84969 842.13 845.12 v05.8 Office Visit 11/04/2012 11:00a Main Office Toby Isabel M.D. 37706 465.9 381.01 Office Visit 09/21/2012 3:20p [facility] Office Toby Isabel M.D. 01449 V70.0 564.1 716.90 477.9 272.4 v04.81 v06.5 Office Visit 06/15/2012 2:40p [facility] Office Toby Isabel M.D. 95097 453.40 564.1 716.90 Office Visit 10/21/2011 2:00p [facility] Toby Isabel M.D. 78478 v58.61 415.19 453.40 564.1 Office Visit 07/17/2011 11:15a Main Office Harley Encarnacion M.D. 34983 v04.81 415.19 V58.61 453.40 Office Visit 07/03/2011 12:45p Main Office Yaw Aparicio M.D. 60568 477.9 Office Visit 06/24/2011 10:00a [facility] Toby Isabel M.D. 44799 562.11 789.06 415.19 300.00 Office Visit 06/14/2011 10:10a Main Office Toby Isabel M.D. 82085 562.11 415.19 453.40 785.1 V58.61 Office Visit 06/05/2011 9:20a Main Office Toby Isabel M.D. 93061 562.11 780.79 Office Visit 06/01/2011 2:10p Main Office Toby Isabel M.D. 51529 789.03 Office Visit 05/29/2011 10:30a Main Office Sharona Temple M.D. 87763 789.09 Office Visit 05/24/2011 2:40p [facility] Zbigniew Velazquez M.D. 64808 785.1 Office Visit 04/01/2011 1:20p [facility] Office Toby Isabel M.D. 08113 719.46 V72.83 Office Visit 03/31/2011 11:00a [facility] JAMES Leyva 91111 461.0 Office Visit 12/26/2010 1:00p Main Office Zbigniew Velazquez M.D. 11301 719.46 Office Visit 08/06/2010 3:20p [facility] Swathi Mojica M.D. 53939 054.79 Office Visit 07/31/2010 9:40a [facility] Swathi Mojica M.D. 06233 599.0 Office Visit 01/05/2010 2:20p Main Office Toby Isabel M.D. 10069 787.91 789.01 Office Visit 01/27/2009 2:50p Main Office Toby Isabel M.D. 06424 E906.3 910.4 Office Visit 08/12/2008 12:10p Main Office Toby Isabel M.D. 98056 465.9 461.9 477.9 995.3 V04.81 Office Visit 12/28/2007 8:50a [facility] Toby Isabel M.D. 13615 477.9 995.3 Office Visit 11/15/2007 4:30p Main Office Toby Isabel M.D. 47244 785.1 300.00 724.5 723.1 Office Visit 10/06/2007 4:20p [facility] Jose Alejandro Morgan M.D. 26927 V58.32 Office Visit 09/12/2007 3:00p Main Office Zbigniew Velazquez M.D. 58171 465.9 Office Visit 08/21/2007 11:30a [facility] Yaw Aparicio M.D. 16045 461.9 Office Visit 04/27/2007 2:10p [facility] Toby Isabel M.D. 79399 719.47 Office Visit 04/07/2007 3:40p Main Office Toby Isabel M.D. 91188 785.1 300.00 Office Visit 02/25/2006 3:20p Main Office Toby Isabel M.D. 91854 477.9 995.3 272.4 389.8 786.09 388.30 V70.0 Office Visit 02/14/2006 8:00p Main Office Toby Isabel M.D. 39074 735.8 Office Visit 09/29/2005 1:50p Main Office Toby Isabel M.D. 89059 786.50 272.4 477.9 V04.81 Office Visit 09/20/2005 3:00p [facility] Office Toby Isabel M.D. 40240 786.50 995.3 Office Visit 12/25/2004 10:00a Main Office Toby Isabel M.D. 53496 719.41 724.5 Office Visit 12/15/2004 9:45a [facility] Rupal Alvarez Kristy 70228 465.9 Office Visit 07/29/2004 10:30a [facility] Yaw Aparicio M.D. 72698 379.93 379.91 Office Visit 06/02/2004 4:15p [facility] Manasa GarciaKristy 18223 462 463 Office Visit 01/31/2003 1:20p Main Office Toby Isabel M.D. 46355 723.1 346.10 477.0 Office Visit 06/13/2002 10:10a Main Office Brennen Hunter M.D. 14932 Office Visit 10/23/2001 4:00p Main Office Toby Isabel M.D. 14771 Office Visit 06/29/2001 11:40a Main Office Toni Popma M.D. 53544 Office Visit 06/08/2001 11:00a Main Office Toni Pompa M.D. 11928 Plan of Care Future Appointment(s):10/12/2018 11:00 am - Toby Isabel M.D. at [facility] Gzafni2010/26/2018 1:20 pm - Toby Isabel M.D. at [facility] [id number]/04/2018 - Jayne Epperson, NPJ01.90 Acute sinusitis, unspecifiedNew Medication: Amoxicillin/Clavulanate Potassium 875-125 mgComments:Call LIBAN if condition changes/worsens in any wayH81.319 Aural vertigo, unspecified earNew Medication: Meclizine HCL 12.5 mgK57.32 Dvtrcli of lg int w/o perforation or abscess w/o bleedingComments:If you are not seeing some improvement within the next 2 days, please come back for a recheck.AllComments:1. Patient has been queried about patient's goals/preferences and functional/lifestyle goals at relevant visits. If relevant, describe: Has been discussed, noted above2. Treatment goals as explainedto the patient: see above3. Are there barriers to meeting treatment goals? Yes If Yes, please describe: Barriers include possible insurance limits, disease process, and difficulty with lifestyle changes4. Self- Management goals as described to the patient: Yes, see above As always, we strongly encourage a healthy diet and making physical activity a part of your every day life. If you have questions about how or where to start, please contact the office.
[2018-10-11] MEDS ORDERED: NS 0.9% 1000 ML* 1,000 ML IV ONE (18:08)
--- NOTE | 2018-10-11 18:10 | ED ---
GI/ HPI - HPI Summary HPI Summary: This pt is a 72 y/o female [facility]/o lower abdominal pain and diarrhea. Pt reports two weeks ago she began to feel pressure on her lower abdomen and states it felt like her diverticulitis. Pt states she didn't "see symptoms." She went to her PCP and the [facility] TIER prescribed her amoxicillin for diverticulitis on 10/04/18, 1 week ago. Pt has taken 14 tablets of the antibiotics so far (twice a day). She did not have a CT done then. Pt notes she was slowly getting better until 2 days ago when she felt her abdomen bloated. She states she has been eating her usual diet, rice, boiled chicken, potatoes, trying to stay away from dairy. Pt began to have watery diarrhea yesterday, about 3-4 episodes. Today she c/o watery diarrhea, lower abd pain, and sore rectum. Denies black or bloody stools. She is unsure if she has hx of C. diff. - History of Current Complaint Chief Complaint: EDAbdPain Time Seen by Provider: 10/11/18 17:53 Stated Complaint: ABD PAIN Hx Obtained From: Patient Onset/Duration: Started Days Ago, Still Present Timing: Lasting Days Current Severity: Moderate Pain Intensity: 5 Location of Pain: Other - lower abd pain Pain Characteristics: Pressure Associated Signs and Symptoms: Positive: Rectal Pain, Diarrhea, Abdominal Pain. Negative: Nausea, Vomiting, Fever, Chills, Chest Pain, UTI Symptoms Aggravating Factor(s): Nothing Alleviating Factor(s): Nothing - Allergy/Home Medications Allergies/Adverse Reactions: Allergies Allergy/AdvReac Type Severity Reaction Status Date / Time metronidazole Allergy Dizziness Verified 10/11/18 16:48 oxycodone Allergy Palpitation Verified 10/11/18 16:48 s PMH/Surg Hx/FS Hx/Imm Hx Endocrine/Hematology History: Denies: Hx Diabetes, Hx Systemic Lupus Erythematosus, Hx Thyroid Disease Cardiovascular History: Reports: Hx Embolism Denies: Hx Congestive Heart Failure, Hx Hypertension Respiratory History: Reports: Other Respiratory Problems/Disorders - HX OF PE Denies: Hx Asthma, Hx Chronic Obstructive Pulmonary Disease (COPD) GI History: Reports: Hx Diverticulosis, Other GI Disorders - colon ca Denies: Hx Ulcer History: Denies: Hx Dialysis, Hx Renal Disease Musculoskeletal History: Reports: Other Musculoskeletal History - fracture rt ankle from 1 week ago Denies: Hx Rheumatoid Arthritis Sensory History: Reports: Hx Contacts or Glasses Opthamlomology History: Reports: Hx Contacts or Glasses - Cancer History Cancer Type, Location and Year: Stage one Colon Cancer 2009 Hx Chemotherapy: No Hx Radiation Therapy: No - Surgical History Surgery Procedure, Year, and Place: Surgical resection of colon 2009. Total right knee 2011 Right shoulder repair 1997. Left knee meniscus repair 2000 - Immunization History Date of Tetanus Vaccine: 09/06 Date of Influenza Vaccine: Unk Infectious Disease History: No Infectious Disease History: Denies: Hx Hepatitis, Hx Human Immunodeficiency Virus (HIV), Traveled Outside the [place] in Last 30 Days - Family History Family History: Father with stroke. Mother with brain tumor. - Social History Alcohol Use: None Alcohol Amount: once or twice a year Substance Use Type: Reports: None Smoking Status (MU): Never Smoked Tobacco Review of Systems Negative: Fever, Chills Negative: Chest Pain Negative: Shortness Of Breath Gastrointestinal: Other - POS: rectal pain Positive: Abdominal Pain, Diarrhea. Negative: Vomiting, Nausea Skin: Negative Neurological: Negative All Other Systems Reviewed And Are Negative: Yes Physical Exam - Summary Physical Exam Summary: Appearance: Well appearing, no pain distress Skin: warm, dry, reflects adequate perfusion Head/face: normal Eyes: EOMI, THOMAS ENT: normal Neck: supple, nontender Respiratory: CTA, breath sounds present Cardiovascular: RRR, pulses symmetrical Abdomen: soft, mild tenderness in the left lower quadrant Musculoskeletal: normal, strength/ROM intact Neuro: normal, sensory motor intact, A&Ox3 Triage Information Reviewed: Yes Vital Signs On Initial Exam: Initial Vitals Temp Pulse Resp BP Pulse Ox 97.5 F 77 18 148/81 97 10/11/18 16:34 10/11/18 16:34 10/11/18 16:34 10/11/18 16:34 10/11/18 16:34 Vital Signs Reviewed: Yes Diagnostics - Vital Signs Vital Signs Temp Pulse Resp BP Pulse Ox 10/11/18 16:34 97.5 F 77 18 148/81 97 - Laboratory Lab Statement: Any lab studies that have been ordered have been reviewed, and results considered in the medical decision making process. GIGU Course/Dx - Course Assessment/Plan: Pt is a 72 y/o female, with hx of diverticulitis, who presents with lower abdominal pain for the past 2 weeks and diarrhea since yesterday. She went to see her PCP and the [facility] TIER prescribed her amoxicillin for diverticulitis on 10/04/18, of which she has taken 14 tablets so far (twice a day). Pt did not have a CT scan done. Blood work, urinalysis, C. diff, CT abdomen/pelvis ordered. Pt will be signed out to Dr. Madrid at shift change pending labs and CT. - Diagnoses Provider Diagnoses: Abdominal pain Discharge - Sign-Out/Discharge Documenting (check all that apply): Sign-Out Patient Signing out patient TO: Stan Madrid - pending CT A/P and labs - Discharge Plan Condition: Stable Referrals: Toby Isabel MD [Primary Care Provider] - - Attestation Statements Document Initiated by Scribe: Yes Documenting Scribe: Cierra Shafer Provider For Whom Scribe is Documenting (Include Credential): Jesse Croft MD Scribe Attestation: ICierra, scribed for Jesse Croft MD on 10/11/18 at 1823. Status of Scribe Document: Ready
[2018-10-11 18:25] LABS: ABS Basophils 0 10^3/ul (0-0.2); ABS Eosinophils 0 10^3/ul (0-0.6); ABS Lymphocytes 1.6 10^3/ul (1.0-4.8); ABS Monocytes 0.4 10^3/ul (0-0.8); ABS Neutrophils 4.8 10^3/ul (1.5-7.7); ABS Nucleated RBC 0 10^3/ul; Eosinophil % 0.7 %; Hematocrit 44 % (35-47); Hemoglobin 14.9 g/dl (12.0-16.0); Lymphocyte % 23.5 %; Mean Corpuscular HGB Conc 34 g/dl (31-36); Mean Corpuscular Hemoglobin 29 pg (27-31); Mean Corpuscular Volume 87 fL (80-97); Mean Platelet Volume 7.7 fL (7.4-10.4); Nucleated Red Blood Cells % 0; Platelet Count 252 10^3/ul (150-450); Red Blood Count 5.12 10^6/ul (4.00-5.40); Red Cell Distribution Width 13 % (10.5-15)
[2018-10-11 18:33] LABS: INR 3.01 (0.77-1.02)
[2018-10-11 18:45] LABS: Albumin 4.2 g/dL (3.2-5.2); Albumin/Globulin Ratio 1.4 (1-3); BUN/Creatinine Ratio 15.8 (8-20); C Reactive Protein 3.92 mg/L (<8.01); Calcium 9.7 mg/dL (8.6-10.3); EGFR Non-African American 74.6 (>60); Globulin 2.9 g/dL (2-4); Potassium 4.3 mmol/L (3.5-5.0); Total Bilirubin 0.9 mg/dL (0.2-1.0); Total Protein 7.1 g/dL (6.4-8.9)
[2018-10-11 18:49] LABS: Urine Appearance Clear; Urine Bacteria 1+ (Absent); Urine Bilirubin Negative (Negative); Urine Blood 1+ (Negative); Urine Color Straw; Urine Glucose Negative (Negative); Urine Ketones Negative (Negative); Urine Nitrite Negative (Negative); Urine Protein Negative (Negative); Urine Red Blood Cell Trace(0-2/hpf) (Absent); Urine Specific Gravity 1.003 (1.010-1.030); Urine Urobilinogen Negative (Negative); Urine White Blood Cell Absent (Absent)
[2018-10-11] MEDS ORDERED: Iohexol 300* (CONTRAST) 10 ML SDV IV ONE (19:51)
--- NOTE | 2018-10-11 20:18 | ED ---
Progress - Progress Note Progress Note: Sign-out received Dr. Croft at shift change pending labs and A/P CT. Pt is a 72 y/o F presenting to ED for lower abd pain and diarrhea. - Results/Orders Results/Orders: A/P CT findings as read by radiologist: IMPRESSION: 1. Sigmoid colon diverticulitis without perforation or abscess. 2. L1 compression fracture appears subacute but was not present on the most recent comparison study. ED provider has reviewed this report. Course/Dx - Course Course Of Treatment: Sign-out received from Dr. Croft at shift change pending labs and A/P CT. Nurses note reviewed. Pt is negative for c. diff. Patient has sigmoidal diverticulitis that was incompletely treated. Will give her a dose of Zosyn in ED and discharge home. Dr. Walters, hospitalist, is agreeable with this plan. We will continue her on outpatient Avelox and discontinue the Augmentin. She has been on this for a week without benefit. Patient understands she will have to have close follow-up of her INR. Today it is 3.07. - Diagnoses Provider Diagnoses: Diverticulitis, Diverticulitis of sigmoid colon - Provider Notifications Discussed Care Of Patient With: Cris Walters - hospitalist Time Discussed With Above Provider: 21:51 Instructed by Provider To: Other - Agreeable to ED physician's COT. Discharge - Sign-Out/Discharge Documenting (check all that apply): Patient Departure - DC, Receiving Sign-Out Receiving patient FROM: Jesse Croft - Discharge Plan Condition: Improved Disposition: HOME Prescriptions: Lactobacillus Acidophilus* 1 cap PO BID #20 cap Moxifloxacin TAB(NF) [Avelox TAB (NF)] 400 mg PO DAILY #7 tab Patient Education Materials: Diverticulitis (ED) Referrals: Toby Isabel MD [Primary Care Provider] - Additional Instructions: Worsening in the morning to schedule prompt follow-up. You will need to have your INR checked routinely while you're on this medication. Return with fever, bleeding, increased pain, worse or other concerns. You may have light culture yogurt and use Imodium at this point. You do not have C. difficile. - Billing Disposition and Condition Condition: IMPROVED Disposition: Home - Attestation Statements Document Initiated by Scribe: Yes Documenting Scribe: Stephanieg Ronald Provider For Whom Scribe is Documenting (Include Credential): Dr. Stan Madrid MD Scribe Attestation: I, freddy Ochoaed for Dr. Stan Madrid MD on 10/11/18 at 2345. Scribe Documentation Reviewed: Yes Provider Attestation: The documentation as recorded by the lennox, Faye Cardenas accurately reflects the service I personally performed and the decisions made by me, Dr. Stan Madrid MD Status of Scribe Document: Viewed
[2018-10-11] MEDS ORDERED: Piperacillin/Tazobac ADVAN(*) 3.375 GM in NS 0.9% 100 ML* 100 ML IVPB ONE (21:43)
[2018-10-11 22:53] VITALS: BP 146/78
== END 2018-10-11 22:53 | disposition home or self-care (01) ==
LOC: ED 16:19
DX: K57.92 Diverticulitis of intestine, part unspecified, without perforation or abscess without bleeding (principal); K62.89 Other specified diseases of anus and rectum; R19.7 Diarrhea, unspecified; R10.9 Unspecified abdominal pain
CPT/HCPCS: 36415; 74177; 80053; 81003; 81015; 83605; 83690; 85025; 85610; 85730; 86140; 87086; 87493; 96361; 96365; 99283; J2543; Q9967

== ENCOUNTER 2019-04-30 20:58 | Emergency (ER) | payer MEDICARE ==
--- OUTSIDE RECORDS SUMMARY | 2019-04-30 21:08 | XMS REPORT | Continuity of Care Document ---
:1945 External Reference #:[id number] Author Name Shahida Galloway Care Team Providers Name Role Phone Toby Isabel MD Primary Care Physician Unavailable Payers Date Identification Numbers Payment Provider Subscriber Effective: 2012 Policy Number: [id number] Medicare Blue o Danielle Saldivar Group Number: [id number] [address] [address] PayID: [id number] [address] Policy Number: [id number] Medicare Danielle Saldivar PayID: [id number] [address] [place] [address] Problems Active Problems Provider Date Localized, primary osteoarthritis Vance Lvoe M.D. Onset: 05/05/2016 Arthroplasty of knee Vance Love M.D. Onset: 05/05/2016 Diverticulosis of sigmoid colon Melody Odell NP Onset: 11/06/2018 Note: first bout 2013; mini episode 2015 and third Oct 11, 2018 -with third + CT in ER but normal CRP 3.92 and WBC 7.0; however 11/04/[address] negative (for acute stranding) but CRP 70.12 WBC normal 6.4; Malignant tumor of colon Melody Odell NP Onset: 11/06/2018 Note: in August 2009 at Generalized anxiety disorder Ramiro Francois MD Onset: 11/22/2001 Note: in 2019 takes a half 2.5 Xanax 3 times a month on average; has never been happy with SSRI trials Pulmonary embolism Ramiro Francois MD Onset: 11/22/2013 Family History Date Family Member(s) Observation Comments Father due to Stroke () Mother due to Brain Cancer () Social History Type Date Description Comments Sex Unknown Marital Status retired from [employer]. 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 [employer] Tobacco Use Start: Unknown Never Smoked Cigarettes Smoking Status Reviewed: 04/02/19 Never Smoked Cigarettes ETOH Use Never used alcohol Tobacco Use Start: Unknown Patient has never smoked Exercise Exercises regularly Type/Frequency Allergies, Adverse Reactions, Alerts Active Allergies Reaction Severity Comments Date Moxifloxacin anxiety/loss of feeling in toes 03/12/2019 Percocet constipated/loud heart beat 03/12/2019 Flagyl Didn't like how it made her feel 03/12/2019 Inactive Allergies NKDA 05/22/2014 Medications Active Medications SIG Qnty Indications Ordering Date Provider Amoxicillin 4 tabs 1 hour before 8caps John Drake, 11/29/2017 500mg dental work M.D. Capsules Warfarin 4mg daily (2-4MG as Unknown directed) Psyllium 2 by mouth every day Unknown 400mg Capsules Zyrtec Allergy 1 by mouth every day Unknown 10mg Capsules Montelukast Sodium 1 by mouth every day Unknown 10mg Tablets Flonase Allergy spray 1 spray in Unknown Relief each nostril twice 50mcg/Act daily Suspension Culturelle 1-2 tabs per day Unknown Capsules Desloratadine 1 by mouth every day Unknown 5mg Tablets Miralax take 1 packet daily Unknown [id number] Packet as needed for constipation History Medications Bactrim DS 1 by mouth twice 20tabs Ramiro Francois, 12/18/2018 - 800-160mg a day Unknown Tablets Amoxicillin 4 tabs 1 hour 8caps John Drake, 09/06/2011 - 500mg Capsules before dental M.D. 05/04/2016 work Vicodin 1-2 by mouth bid 40tabs Vance Love, 05/20/2011 - 5-500mg Tablets as needed for M.D. 05/21/2014 pain Percocet 1-2 po q4-6h prn 60tabs Vance Love, 04/13/2011 - 5-325mg Tablets pain M.D. 05/20/2011 Coumadin 2 po qd use as 50tabs Vance Love, 04/13/2011 - 2.5mg Tablets directed M.D. 05/21/2014 Aspir-81 Unknown - 05/04/2016 Selenium ER Unknown - 05/04/2016 Xanax Unknown - 05/04/2016 Amitriptyline HCL Unknown - 05/04/2016 Bactrim DS 1 by mouth twice 20tabs Melody Odell NP - 800-160mg a day 11/21/2018 Tablets Meclizine HCL 1 pill twice a Unknown - 12.5mg day if too Unknown Tablets sedating reduce to one pill at bedtime Vital Signs Date Vital Result Comment 04/02/2019 11:22am Height 70 inches 5'10" Weight 186.00 lb Heart Rate 78 /min BP Systolic Sitting 110 mmHg BP Diastolic Sitting 76 mmHg Respiratory Rate 12 /min Body Temperature 97.7 F BMI (Body Mass Index) 26.7 kg/m2 03/12/2019 2:44pm Height 70 inches 5'10" Weight 186.00 lb Heart Rate 74 /min BP Systolic 112 mmHg BP Diastolic 68 mmHg O2 % BldC Oximetry 97 % BMI (Body Mass Index) 26.7 kg/m2 12/18/2018 2:52pm Height 70 inches 5'10" Weight 190.38 lb Heart Rate 73 /min BP Systolic 111 mmHg BP Diastolic 67 mmHg Respiratory Rate 18 /min Body Temperature 96.5 F O2 % BldC Oximetry 100 % BMI (Body Mass Index) 27.3 kg/m2 11/22/2018 3:27pm Height 70 inches 5'10" Weight 191.00 lb Heart Rate 79 /min BP Systolic 104 mmHg BP Diastolic 61 mmHg Respiratory Rate 18 /min Body Temperature 97.6 F O2 % BldC Oximetry 98 % BMI (Body Mass Index) 27.4 kg/m2 11/06/2018 3:34pm Height 70 inches 5'10" Weight 190.00 lb Heart Rate 77 /min BP Systolic 123 mmHg BP Diastolic 78 mmHg Respiratory Rate 18 /min Body Temperature 99.5 F O2 % BldC Oximetry 98 % BMI (Body Mass Index) 27.3 kg/m2 05/31/2018 1:09pm Height 70 inches 5'10" Weight 205.00 lb BP Systolic 106 mmHg BP Diastolic 68 mmHg Respiratory Rate 12 /min Pain Level 0 BMI (Body Mass Index) 29.4 kg/m2 09/08/2017 1:01pm Height 70 inches 5'10" Weight 202.00 lb Heart Rate 78 /min Respiratory Rate 16 /min Body Temperature 97.5 F Pain Level 5 BMI (Body Mass Index) 29.0 kg/m2 05/04/2017 1:05pm Height 70 inches 5'10" BP Systolic 130 mmHg BP Diastolic 78 mmHg Respiratory Rate 16 /min Body Temperature 97.7 F Pain Level 0 11/01/2016 3:21pm Height 70 inches 5'10" Respiratory Rate 20 /min Pain Level 0 09/20/2016 2:33pm Height 70 inches 5'10" Respiratory Rate 16 /min Pain Level 2 05/05/2016 11:43am Height 70 inches 5'10" Weight 191.00 lb Pain Level 0 BMI (Body Mass Index) 27.4 kg/m2 04/22/2015 10:40am Height 70 inches 5'10" Weight 191.00 lb Pain Level 0 BMI (Body Mass Index) 27.4 kg/m2 01/01/2015 2:46pm Height 70 inches 5'10" Heart Rate 76 /min BP Systolic 119 mmHg BP Diastolic 78 mmHg 10/30/2014 3:45pm Height 70 inches 5'10" Heart Rate 79 /min BP Systolic 120 mmHg BP Diastolic 72 mmHg 10/08/2014 4:01pm Height 70 inches 5'10" Weight 191.00 lb Heart Rate 80 /min BMI (Body Mass Index) 27.4 kg/m2 09/04/2014 8:10am Height 70 inches 5'10" Weight 191.00 lb Heart Rate 79 /min BP Systolic 135 mmHg BP Diastolic 78 mmHg BMI (Body Mass Index) 27.4 kg/m2 05/22/2014 1:38pm Height 70 inches 5'10" Heart Rate 66 /min BP Systolic 117 mmHg BP Diastolic 73 mmHg 01/06/2011 10:49am Height 70 inches 5'10" Weight 193.00 lb Heart Rate 74 /min BP Systolic 133 mmHg BP Diastolic 79 mmHg BMI (Body Mass Index) 27.7 kg/m2 Results Test Date Facility Test Result H/L Range Note CBC Auto Diff 12/14/2018 [facility] White Blood 7.0 10^3/uL N 3.5-10.[address] [place] [address] [phone] Red Blood Count 4.68 10^6/uL N 4.00-5.40 Hemoglobin 13.9 g/dL N 12.0-16.0 Hematocrit 41 % N 35-47 Mean Corpuscular Volume 87 fL N 80-97 Mean Corpuscular Hemoglobin 30 pg N 27-31 Mean Corpuscular HGB Conc 34 g/dL N 31-36 Red Cell Distribution Width 14 % N 10.5-15 Platelet Count 273 10^3/uL N 150-450 Mean Platelet Volume 8.3 fL N 7.4-10.4 Abs Neutrophils 4.5 10^3/uL N 1.5-7.7 Abs Lymphocytes 1.7 10^3/uL N 1.0-4.8 Abs Monocytes 0.5 10^3/uL N 0-0.8 Abs Eosinophils 0.2 10^3/uL N 0-0.6 Abs Basophils 0 10^3/uL N 0-0.2 Abs Nucleated RBC 0 10^3/uL Granulocyte % 64.9 % Lymphocyte % 24.4 % Monocyte % 7.6 % Eosinophil % 2.4 % Basophil % 0.7 % Nucleated Red Blood Cells % 0 Comp Metabolic Panel 12/14/2018 [facility] Sodium 139 mmol/L N 135-[address] [place] [address] [phone] Potassium 4.4 mmol/L N 3.5-5.0 Chloride 105 mmol/L N 101-111 Co2 Carbon Dioxide 29 mmol/L N 22-32 Anion Gap 5 mmol/L N 2-11 Glucose 96 mg/dL N 70-100 Blood Urea Nitrogen 22 mg/dL N 6-24 Creatinine 0.69 mg/dL N 0.51-0.95 BUN/Creatinine Ratio 31.9 High 8-20 Calcium 9.2 mg/dL N 8.6-10.3 Total Protein 6.3 g/dL Low 6.4-8.9 Albumin 4.1 g/dL N 3.2-5.2 Globulin 2.2 g/dL N 2-4 Albumin/Globulin Ratio 1.9 N 1-3 Total Bilirubin 0.70 mg/dL N 0.2-1.0 Alkaline Phosphatase 91 U/L N 34-104 Alt 24 U/L N 7-52 Ast 23 U/L N 13-39 Egfr Non- 83.2 >60 Egfr 100.6 >60 1 Laboratory test 12/14/2018 [facility] C Reactive 4.68 mg/L N < 8.[address] [place] [address] [phone] Laboratory test 11/07/2018 [facility] Stool Culture <pending> [address] [place] [address] [phone] C Difficile PCR SEE RESULT BELOW 3 1 Because ethnic data is not always readily [...] 15-29 5 Kidney failure <15 (or dialysis) 2 [id number] 3 SEE RESULT BELOW Name: DANIELLE SALDIVAR : [address]: Melody Odell NP Acct: [id number] Unit: [id number] AGE: 73 Location: [facility] Re11/07/18 SEX: F Status: REG REF SPEC: [id number] NIKI: 11/07/18-[address]: Melody Odell NP REQ: [id number] RECD: 11/07/18 STATUS: COMP _ SOURCE: STOOL [facility]: ORDERED: C. diff PCR, Stool Culture COMMENTS: [id number] Unable to Perform Shiga Toxin Testing. Insufficient Growth of Enteric Bacteria. Procedure Result Reported Site Stool Culture Final 11/09/18- 1227 ML Result No growth of normal enteric shad No enteric pathogens isolated Testing for Salmonella, Shigella, Aeromonas, Plesiomonas, Yersinia and Campylobacter are included in a Stool Culture. Vibrio spp not routinely tested for in a stool culture. If testing is desired, please request specifically when placing test order. Sensitivities not routinely performed on stool isolates, as antibiotics may prolong the carriage rate of bacteria. Please contact the microbiology lab if sensitivities are required. Stool Specimen Description Final 11/07/18- 1501 ML Stool Color Brown Stool Form Nonformed Stool Consistency Liquid Shiga Toxin 1 2 Final 11/09/18- 1227 ML Test not performed C. difficile PCR Final 11/07/18- 1554 ML Organism 1 027 Presumptive NEGATIVE Organism 2 Toxigenic C.diff NEGATIVE CONTINUED ON NEXT PAGE DEPARTMENT OF PATHOLOGY, [address], [place], [place] [address] Toni Manuel M.D. Director [facility] # [id number] Patient: DANIELLE SALDIVAR [id number] (Continued) Specimen: [id number] Collected: 11/07/18-999 Received: 11/07/18141 (Continued) Procedure Result Reported Site C. difficile PCR Final (continued) 11/07/18 8597 * ML - Main Lab . END OF REPORT DEPARTMENT OF PATHOLOGY, [address] [place] [address] Toni Manuel M.D. Director [facility] # [id number] Procedures Date Code Description Status 01/18/2017 88693441 Colonoscopy Completed 04/14/2015 83973 ECHO Transthoracic, Real-Time 2D With Doppler And Color Completed Flow 10/08/2014 89584 Rad Exam; Ankle Comp Completed 09/10/2014 30014 ECHO Transthorasic Realtime 2D W Doppler & Color Flow Completed Hosp 09/04/2014 55056 CLSD TX Distal Fib FX (Lateral Malleolus) w/o Completed manipulation 05/22/2014 54823 Xray Knee 3 Views Completed 10/23/2013 25201078 Colonoscopy Completed 06/01/2013 05704 Rad Exam; Wrist Limited, 2 Views Completed 05/17/2013 74733 Xray Knee 3 Views Completed 05/17/2013 85998 Rad Exam; Knee, Ap&L Completed 05/16/2013 38053 Rad Exam; Wrist Limited, 2 Views Completed 05/16/2013 94854 Short Arm Cast Application Completed 05/11/2013 34566 Rad Exam; Wrist, Comp, Min 3 Views Completed 05/11/2013 22023 Rad Exam; Wrist Limited, 2 Views Completed 05/03/2013 97677 Rad Exam; Wrist Limited, 2 Views Completed 04/24/2013 95065 Short Arm Cast Application Completed 04/24/2013 93255 CLST TRMT Distal Radial FX Completed 04/24/2013 16961 Rad Exam; Wrist Limited, 2 Views Completed 03/16/2012 20391 Xray Knee 3 Views Completed 03/16/2012 44107 Rad Exam; Knee, Ap&L Completed 06/10/2011 80627 Color Flow Doppler/Interp & Reprt Completed 06/10/2011 53040 Pulse Wave/Continuous-Interp.RPT Completed 06/10/2011 56025 ECHO Transthorasic Realtime 2D W Doppler & Color Flow Completed Hosp 05/20/2011 82025 Xray Knee 3 Views Completed 04/19/2011 98173 TKR Total Knee Replacement Completed 04/19/2011 05352 TKR Total Knee Replacement Completed 11/02/2010 [id number] Colonoscopy Completed 09/22/2009 34529959 Colonoscopy Completed Encounters Type Date Location Provider Dx Diagnosis Office Visit 03/12/2019 [facility] Ramiro Carrasco K57.92 Dvtrcli of 2:30p MD Alessandro intest, part unsp, w/o perf or abscess w/o bleed I26.99 Other pulmonary embolism without acute cor pulmonale C18.9 Malignant neoplasm of colon, unspecified F41.1 Generalized anxiety disorder Office Visit 12/18/2018 2:15p [facility] Ramiro Carrasco K57.92 Dvtrcli of MD Alessandro intest, part unsp, w/o perf or abscess w/o bleed I26.99 Other pulmonary embolism without acute cor pulmonale C18.9 Malignant neoplasm of colon, unspecified Office Visit 11/22/2018 3:00p [facility] Ramiro Carrasco R19.4 Change in MD Alessandro bowel habit K57.92 Dvtrcli of intest, part unsp, w/o perf or abscess w/o bleed I26.99 Other pulmonary embolism without acute cor pulmonale F41.1 Generalized anxiety disorder C18.9 Malignant neoplasm of colon, unspecified Office Visit 11/06/2018 2:30p [facility] Melody Odell K57.92 Dvtrcli of [employer] intest, part unsp, w/o perf or abscess w/o bleed R19.4 Change in bowel habit R10.30 Lower abdominal pain, unspecified Office Visit 05/31/2018 1:00p [facility] Z96.651 Presence of Services Of Tejinder Love right artificial C.M.A. knee joint M25.562 Pain in left knee Office Visit 09/08/2017 [facility] Homero Lloyd M17.11 Unilateral primary 1:00p Services Of MD Lester osteoarthritis, C.M.A. right knee Z96.651 Presence of right artificial knee joint S83.91xA Sprain of unspecified site of right knee, initial encounter Office Visit 05/04/2017 [facility] M17.11 Unilateral primary 1:00p Services Of Tejinder Love osteoarthritis, C.M.A. right knee Z96.651 Presence of right artificial knee joint S96.212S Strain of intrns msl/tnd at ank/ft level, left foot, sequela Office Visit 11/01/2016 3:00p [facility] Homero Lloyd S83.411D Sprain of medial Services Of MD Lester collateral C.M.A. ligament of right knee, subs Z96.651 Presence of right artificial knee joint Office Visit 09/20/2016 2:20p [facility] Homero Lloyd S83.411A Sprain of medial Services Of MD Lester collateral C.M.A. ligament of right knee, init Office Visit 05/05/2016 11:30a [facility] Vance Z09 Encntr for f/u Services Of Tejinder Love exam aft trtmt C.M.A. for cond oth than malig neoplm Z96.651 Presence of right artificial knee joint Z87.39 Personal history of diseases of the ms sys and conn tiss Office Visit 04/22/2015 [facility]opedic Melia V43.65 Knee Replacement 10:00a Services Of WILLY Mendez By Other Means Office Visit 01/01/2015 [facility] 824.8 FX Ankle Unspec 2:45p Services Of Celestino Love M.D. Closed Office Visit 09/12/2014 [facility] 415.19 Pulmonary 7:15p Assoc,pam Good D.O. Embolism And Hospitalists Infarction Other V10.05 Personal History Malignant Neoplasm Large Intestine Office Visit 09/11/2014 2:35p Pulmonology And Nicholas Lopez 415.19 Pulmonary Sleep Services Of Tejinder Embolism And Personnel Worker Infarction Other [facility] Assoc,Jose Armando SalomonO. Embolism And Hospitalists Infarction Other V10.05 Personal History Malignant Neoplasm Large Intestine Office Visit 09/10/2014 12:14p Pulmonology And Nicholas Lopez 786.05 Shortness Of Sleep Services Of Tejinder Breath Personnel Worker 415.19 Pulmonary Embolism And Infarction Other Office Visit 09/10/2014 9:45a [facility] Chung Bergman, 790.99 Blood Examination Of Ravi Marr, FACC, Other Nonspecific FSCAI Findings 415.19 Pulmonary Embolism And Infarction Other Office Visit 09/10/2014 [facility] 415.19 Pulmonary 7:14p Assoc,pam MOORE M.D. Embolism And Hospitalists Infarction Other V10.05 Personal History Malignant Neoplasm Large Intestine Office Visit 05/22/2014 [facility] 715.96 Osteoarthrosis 1:30p Services Of Tejinder Love Unspec Genlzd Or C.M.A. Localized Lower Leg Office Visit 08/22/2013 [facility] Maura 813.42 FX Radius (Alone) 11:30a Services Of [place] Distal End Other Nav.Nisha Marr Closed Office Visit 05/17/2013 [facility] 715.96 Osteoarthrosis 2:30p Services Of Tejinder Love Genlzd Or C.M.A. Localized Lower Leg Office Visit 11/16/2012 [facility] 726.61 Bursitis Tendinitis 3:15p Services Of Tejinder Love Pes Anserinus C.M.A. Office Visit 07/27/2012 [facility] 726.61 Bursitis Tendinitis 1:30p Services Of Tejinder Love Pes Anserinus C.M.A. Office Visit 03/16/2012 [facility] 924.11 Contusion Knee 4:00p Services Of Tejinder Love C.M.A. Office Visit 12/28/2011 [facility] 726.61 Bursitis Tendinitis 11:00a Services Of Tejinder Love Pes Anserinus C.M.A. Office Visit 10/28/2011 [facility] 726.61 Bursitis Tendinitis 11:00a Services Of Tejinder Love Pes Anserinus C.M.A. Office Visit 09/09/2011 [facility] 715.96 Osteoarthrosis 3:00p Services Of Tejinder Love Unspec Genlzd Or C.M.A. Localized Lower Leg Office Visit 08/05/2011 [facility] 715.96 Osteoarthrosis 3:00p Services Of Kate, M.D. Unspec Genlzd Or C.M.A. Localized Lower Leg Office Visit 03/04/2011 [facility] 715.96 Osteoarthrosis 2:00p Services Of Tejinder Love Unspec Genljeny Or C.M.A. Localized Lower Leg Office Visit 01/06/2011 [facility] 715.96 Osteoarthrosis 10:30a Services Of Tejinder Love Unspec Genljeny Or C.M.A. Localized Lower Leg Plan of Treatment Future Appointment(s):05/14/2019 2:45 pm - Ramiro Francois MD at [facility] [id number]/10/2019 - Nicholas Damon MD, FACSK57.92 Diverticulitis of intestine, part unspecified, without perfoFollow up:TBD.
--- NOTE | 2019-04-30 21:28 | ED ---
Throat Pain/Nasal Congestion - HPI Summary HPI Summary: The pt is a 73 Y/O F and is presenting to [facility] accompanied by her with a CC of her L eye being bloody. She states she was gardening and brushed something away from her face and may have accidentally scratched it. She states that the eye is painful and feels thick. She denies a cough, fever, CP, SOB, other facial injuries, and a headache. She has no alleviating factors. She is on Warfarin. Her eye doctor is Dr. Lerner. - History of Current Complaint Chief Complaint: EDEyeProblem Time Seen by Provider: 04/30/19 21:16 Hx Obtained From: Patient Onset/Duration: Sudden Onset, Still Present Severity: Moderate Cough: None - Allergies/Home Medications Allergies/Adverse Reactions: Allergies Allergy/AdvReac Type Severity Reaction Status Date / Time metronidazole Allergy Dizziness Verified 04/30/19 21:02 moxifloxacin Allergy Unknown Verified 04/30/19 21:02 Reaction Details oxycodone Allergy Palpitation Verified 04/30/19 21:02 s PMH/Surg Hx/FS Hx/Imm Hx Previously Healthy: Yes Endocrine/Hematology History: Denies: Hx Diabetes, Hx Systemic Lupus Erythematosus, Hx Thyroid Disease Cardiovascular History: Reports: Hx Embolism Denies: Hx Congestive Heart Failure, Hx Hypertension Respiratory History: Reports: Other Respiratory Problems/Disorders - HX OF PE Denies: Hx Asthma, Hx Chronic Obstructive Pulmonary Disease (COPD) GI History: Reports: Hx Diverticulosis, Other GI Disorders - colon ca Denies: Hx Ulcer History: Denies: Hx Dialysis, Hx Renal Disease Musculoskeletal History: Reports: Other Musculoskeletal History - fracture rt ankle from 1 week ago Denies: Hx Rheumatoid Arthritis Sensory History: Reports: Hx Contacts or Glasses Opthamlomology History: Reports: Hx Contacts or Glasses - Cancer History Cancer Type, Location and Year: Stage one Colon Cancer 2008 Hx Chemotherapy: No Hx Radiation Therapy: No - Surgical History Surgery Procedure, Year, and Place: Surgical resection of colon 2009. Total right knee 2011 Right shoulder repair 1997. Left knee meniscus repair 2000 - Immunization History Date of Tetanus Vaccine: 09/06 Date of Influenza Vaccine: Unk Infectious Disease History: No Infectious Disease History: Denies: Hx Hepatitis, Hx Human Immunodeficiency Virus (HIV), Traveled Outside the [place] in Last 30 Days - Family History Known Family History: Positive: Other - Father with stroke. Mother with brain tumor. Family History: Father with stroke. Mother with brain tumor. - Social History Lives: With Family Alcohol Use: None Alcohol Amount: once or twice a year Hx Substance Use: No Substance Use Type: Reports: None Hx Tobacco Use: No Smoking Status (MU): Never Smoked Tobacco Review of Systems Negative: Fever, Skin Diaphoresis Eyes: Negative - other eye issues Positive: Other - subconjunctival hemorrhage ENT: Negative Negative: Chest Pain Negative: Shortness Of Breath, Cough All Other Systems Reviewed And Are Negative: Yes Physical Exam - Summary Physical Exam Summary: Appearance: Well-appearing, Well-nourished, lying in bed comfortable Skin: Warm, dry, no obvious rash Eyes: Fairly large subconjunctival hemorrhage. No hyphemia, Visual acuity is intact to gross concentration, Able to read my badge with normal ability, Interior chamber is clear Pupils are equal, round, and reactive to light. Extra ocular movement are intact ENT: mucous membranes moist Neck: deferred Respiratory: No signs of respiratory distress Cardiovascular: Appears well perfused, pulses are nml Abdomen: deferred Musculoskeletal: Moving all 4 extremities without obvious discomfort Neurological: Awake and alert, mentation is normal, speech is fluent and appropriate Psychiatric: affect is normal, does not appear anxious or depressed Triage Information Reviewed: Yes Vital Signs On Initial Exam: Initial Vitals Temp Pulse Resp BP Pulse Ox 97.9 F 77 16 148/79 96 04/30/19 20:59 04/30/19 20:59 04/30/19 20:59 04/30/19 20:59 04/30/19 20:59 Vital Signs Reviewed: Yes Diagnostics - Vital Signs Vital Signs Temp Pulse Resp BP Pulse Ox 04/30/19 20:59 97.9 F 77 16 148/79 96 - Laboratory Lab Statement: Any lab studies that have been ordered have been reviewed, and results considered in the medical decision making process. EENT Course/Dx - Course Course Of Treatment: The pt is a 73 Y/O F and is presenting to [facility] accompanied by her with a CC of her L eye being bloody. Her PE showed a Fairly large subconjunctival hemorrhage. No hyphemia, Visual acuity is intact to gross concentration, Able to read my badge with normal ability, Interior chamber is clear Pupils are equal, round, and reactive to light. She will be discharged home with insturctions to follow up with her eye doctor and to call the ED with any questions she may have through out the night. She is Dx with subconjunctival hemorrhage. Pupils are equal, round, and reactive to light. Extra occular movement are intact - Diagnoses Provider Diagnoses: Subconjunctival hemorrhage of left eye Discharge - Sign-Out/Discharge Documenting (check all that apply): Patient Departure - discharge Patient Received Moderate/Deep Sedation with Procedure: No - Discharge Plan Condition: Good Disposition: HOME Patient Education Materials: Subconjunctival Hemorrhage (ED) Referrals: Toby Isabel MD [Primary Care Provider] - - Billing Disposition and Condition Condition: GOOD Disposition: Home - Attestation Statements Document Initiated by Perez: Yes Documenting Scribe: Dominic Deluna Provider For Whom Perez is Documenting (Include Credential): lE Powers MD Scribe Attestation: Dominic Garcia, scrmyraed for El Powers MD on 05/01/19 at 0117. Scribe Documentation Reviewed: Yes Provider Attestation: The documentation as recorded by the Dominic high accurately reflects the service I personally performed and the decisions made by , El Powers MD Status of Scribe Document: Viewed
[2019-04-30 21:36] VITALS: BP 122/75
== END 2019-04-30 21:35 | disposition home or self-care (01) ==
LOC: ED 20:58
DX: H11.32 Conjunctival hemorrhage, left eye (principal); Z88.1 Allergy status to other antibiotic agents; Z88.5 Allergy status to narcotic agent; Z88.8 Allergy status to other drugs, medicaments and biological substances
CPT/HCPCS: 99282